=== PATIENT | female | born 1970 | race Caucasian/White ===

== ENCOUNTER → 2018-05-10 10:07 | Outpatient (CLI) | payer OTHER, SELFPAY ==
--- NOTE | 2018-05-10 10:10 | DI.MG.S_ITS ---
BILATERAL DIGITAL SCREENING MAMMOGRAM 3D/2D WITH CAD: 05/10/2018 CLINICAL: Routine screening. Comparison is made to exam dated: 05/08/2016 [facility]. The tissue of both breasts is heterogeneously dense. This may lower the sensitivity of mammography. Current study was also evaluated with a Computer Aided Detection (CAD) system. No significant masses, calcifications, or other findings are seen in either breast. There has been no significant interval change. IMPRESSION: NEGATIVE There is no mammographic evidence of malignancy. A 1 year screening mammogram is recommended. This exam was interpreted at Station ID: [id number]. NOTE: For mammograms, a report in lay terms will be sent to the patient. Approximately 15% of breast malignancies will not be visualized mammographically. In the management of a palpable breast mass, a negative mammogram must not discourage biopsy of a clinically suspicious lesion. Electronically Signed By: Jossue chew/james:05/13/2018 11:40:21 copy to: Jayla Lau letter sent: Normal Exam ACR BI-RADS Category 1: Negative 3341F
== END ==
PROVIDERS: Family Provider Physician Assistant Medical; PCP Physician Assistant Medical; Visit Provider Student in an Organized Health Care Education/Training Program
DX: Z12.31 Encounter for screening mammogram for malignant neoplasm of breast (principal)
CPT/HCPCS: 77063; 77067

== ENCOUNTER → 2018-05-13 09:30 | Outpatient (CLI) | payer OTHER, SELFPAY ==
[2018-05-13 10:25] LABS: Add Manual Diff / Slide Review NO; Basophils Percent Auto 0.7 % (0-2); Eosinophils Percent Auto 3.3 % (2-4); Hemoglobin 13.4 g/dL (12.0-16.0); Lymphocytes Percent Auto 25.1 % (25-40); Mean Corpuscular HGB Conc 33.4 % (30-36); Mean Corpuscular Hemoglobin 29.1 PG (26-34); Mean Corpuscular Volume 87.1 fL (80-100); Monocytes Percent Auto 6.9 % (3-14); Neutrophils Absolute Auto 4000 /uL (3000-5900); Platelet Count 194 X10^3/uL (150-400); Red Cell Distribution Width 13.5 % (11.6-14.8); White Blood Cell Count 6.3 X10^3/uL (4.5-11.0)
[2018-05-13 11:02] LABS: Alanine Aminotransferase 21 IU/L (9-52); Albumin 4.2 g/dL (3.5-5.0); Albumin Globulin Ratio 1.5 (1.0-2.8); Alkaline Phosphatase 39 U/L (38-126); Aspartate Aminotransferase 21 IU/L (14-36); BUN Creatinine Ratio 17.5 (6-22); Bilirubin Total 0.6 mg/dL (0.2-1.3); Blood Urea Nitrogen 14 mg/dL (7-17); Carbon Dioxide 27 mmol/L (22-32); Chloride 102 mmol/L (98-107); Cholesterol 170 mg/dL (140-199); Estimated Glomerular Filt Rate > 60.0 mL/min (>60); Globulin 2.8 g/dL (1.7-4.1); Glucose 96 mg/dL (70-100); HDL Cholesterol 71 mg/dL (40-60); HEMOLYSIS < 15 (0-50); LDL Cholesterol Calculated 83 mg/dL (<100); Potassium 3.7 mmol/L (3.4-5.1); Sodium 139 mmol/L (137-145); Triglycerides 82 mg/dL (35-150)
[2018-05-13 11:30] LABS: Thyroid Stimulating Hormone 3.53 uIU/mL (0.47-4.68)
== END ==
PROVIDERS: Family Provider Physician Assistant Medical; PCP Physician Assistant Medical; Visit Provider Student in an Organized Health Care Education/Training Program
DX: E03.9 Hypothyroidism, unspecified (principal); Z13.220 Encounter for screening for lipoid disorders
CPT/HCPCS: 36415; 80053; 80061; 84443; 85025

== ENCOUNTER → 2019-05-26 08:51 | Outpatient (CLI) | payer OTHER, SELFPAY ==
[2019-05-26 09:55] LABS: Hemoglobin 13.9 g/dL (12.0-16.0); Mean Corpuscular Hemoglobin 29.7 PG (26-34); Mean Corpuscular Volume 87.3 fL (80-100); Platelet Count 188 X10^3/uL (150-400); Red Cell Distribution Width 13.1 % (11.6-14.8); White Blood Cell Count 5.2 X10^3/uL (4.5-11.0)
[2019-05-26 10:00] LABS: Alanine Aminotransferase 15 IU/L (<35); Albumin 4.5 g/dL (3.5-5.0); Albumin Globulin Ratio 1.7 (1.0-2.8); Alkaline Phosphatase 40 U/L (38-126); Aspartate Aminotransferase 26 IU/L (14-36); BUN Creatinine Ratio 17.5 (6-22); Bilirubin Total 0.8 mg/dL (0.2-1.3); Blood Urea Nitrogen 14 mg/dL (7-17); Calcium 9.5 mg/dL (8.4-10.2); Carbon Dioxide 28 mmol/L (22-32); Chloride 104 mmol/L (98-107); Cholesterol 183 mg/dL (140-199); Estimated Glomerular Filt Rate > 60.0 mL/min (>60); Globulin 2.6 g/dL (1.7-4.1); Glucose 104 mg/dL (70-100); HDL Cholesterol 69 mg/dL (40-60); HEMOLYSIS < 15 (0-50); LDL Cholesterol Calculated 101 mg/dL (<100); Potassium 4.5 mmol/L (3.4-5.1); Sodium 140 mmol/L (137-145); Total Protein 7.1 g/dL (6.3-8.2); Triglycerides 67 mg/dL (35-150)
[2019-05-26 11:00] LABS: Thyroid Stimulating Hormone 3.76 uIU/mL (0.47-4.68)
== END ==
PROVIDERS: PCP Nurse Practitioner Family; Visit Provider Nurse Practitioner Family
DX: Z00.00 Encounter for general adult medical examination without abnormal findings (principal); Z13.6 Encounter for screening for cardiovascular disorders; E03.9 Hypothyroidism, unspecified
CPT/HCPCS: 36415; 80053; 80061; 84443; 85027

== ENCOUNTER → 2019-06-15 14:33 | Outpatient (CLI) | payer OTHER, SELFPAY ==
--- NOTE | 2019-06-15 14:35 | DI.MG.S_ITS ---
BILATERAL DIGITAL SCREENING MAMMOGRAM 3D/2D WITH CAD: 06/15/2019 CLINICAL: Routine screening. Comparison is made to exams dated: 05/10/2018 mammogram and 05/08/2016 mammogram - [facility]. The tissue of both breasts is heterogeneously dense. This may lower the sensitivity of mammography. Current study was also evaluated with a Computer Aided Detection (CAD) system. No significant masses, calcifications, or other findings are seen in either breast. There has been no significant interval change. IMPRESSION: NEGATIVE There is no mammographic evidence of malignancy. A 1 year screening mammogram is recommended. This exam was interpreted at Station ID: [id number]. NOTE: For mammograms, a report in lay terms will be sent to the patient. Approximately 15% of breast malignancies will not be visualized mammographically. In the management of a palpable breast mass, a negative mammogram must not discourage biopsy of a clinically suspicious lesion. Electronically Signed By: Emily [email or web address]/james:06/15/2019 15:32:57 copy to: Jayla Lau letter sent: Normal Exam ACR BI-RADS Category 1: Negative 3341F
== END ==
PROVIDERS: PCP Nurse Practitioner Family; Visit Provider Nurse Practitioner Family
DX: Z12.31 Encounter for screening mammogram for malignant neoplasm of breast (principal)
CPT/HCPCS: 77063; 77067

== ENCOUNTER 2019-07-30 12:31 | Day surgery (SDC) | payer OTHER, SELFPAY ==
[2019-07-30 12:54] VITALS: BMI 28.0
[2019-07-30 12:59] VITALS: BP 115/78; PULSE 64; RESP 12; TEMP 36.2; O2SAT 100
--- NOTE | 2019-07-30 13:05 | PM.HP.1 ---
History of Present Illness History of Present Illness Date Patient Seen: 07/30/19 Time Patient Seen: 13:54 Chief complaint: [id number] Narrative: Patient presents for colorectal screening. They have never had any previous examination for such. No personal or family history of colon cancer. On further history denies any recent gastrointestinal symptoms. No nausea, vomiting, abdominal pain, loss of appetite, unexplained weight loss, change in bowel habits, diarrhea, constipation, melena, hematochezia, or bright red blood per rectum. Patient History Medical History Acquired hypothyroidism (Acute 2010) BMI 30.0-30.9,adult (Acute) Chicken pox (Resolved ~1976) History of recurrent ear infection (Resolved) Spell of dizziness (Inactive ~10/2018) Surgical History Anesthesia (Resolved) H/O lateral meniscus repair of right knee (Resolved) Status post appendectomy (~1995) Status post laparoscopic supracervical hysterectomy (07/15/17) Status post tonsillectomy and adenoidectomy (~1976) Family & Social History Family History Father History of heart disease Hypertension Mental health problem Stroke Dementia Mother Multiple sclerosis Hypertension Mental health problem Brother Skin cancer Mental health problem Anxiety and depression Brother Hypertension Hyperlipidemia Mental health problem ADHD Sister Bipolar 1 disorder Personality disorder Hypertension Grandfather History of heart disease Grandmother Mental health problem Schizophrenia Grandfather Cancer Grandmother Stroke Social History: household members spouse Tobacco & Substance use: Smoking Status Never smoker alcohol intake never Substance Use Type does not use Meds Home Medications and Allergies Home Medications Medication Instructions Recorded Confirmed Type calcium carbonate-magnesium oxide 1 tab PO DAILY 05/01/19 07/30/19 History 333 mg-167 mg tablet cholecalciferol (vitamin D3) 25 2,000 unit PO DAILY cap 05/01/19 07/30/19 History mcg (1,000 unit) capsule levothyroxine 50 mcg tablet 50 mcg PO DAILY #90 tab 07/14/19 07/30/19 Rx ondansetron HCl 8 mg PO Q8H PRN 07/30/19 07/30/19 History Allergies Allergy/AdvReac Type Severity Reaction Status Date / Time No Known Drug Allergies Allergy Verified 07/30/19 12:51 Review of Systems Review of Systems Narrative: A 10 point review of systems is negative except as noted in the HPI Exam Vital Signs (past 8 hours): - 07/30/19 12:59 Temperature 97.1 F L Pulse Rate 64 Respiratory Rate 12 Blood Pressure 115/78 Pulse Oximetry 100 Oxygen Delivery Method Room Air Narrative Exam Narrative: General-no acute distress, well nourished HEENT-moist mucous membranes, no scleral icterus Neck-supple, no lymphadenopathy Chest- non labored respirations, clear to auscultation bilaterally Cardiac-regular rate no peripheral edema Abdomen-soft, nontender, non distended Extremities-warm, well perfused Neurological-alert and oriented, no focal deficits Assessment & Plan Assessment and plan (1) Screening for colon cancer: Current visit: Yes Status: Acute Assessment & Plan narrative: The patient requires colorectal screening and colonoscopy is recommended. Technical details were discussed. Risks, benefits, alternatives explained. Risks including but not limited to myocardial infarction, aspiration, bleeding, pain, missed lesion, incomplete examination, need for further radiographic studies, colonic perforation, and need for major abdominal surgery were discussed. All questions were answered to their satisfaction, and they are in agreement with this plan.
[2019-07-30] MEDS: SODIUM CHLORIDE 0.9% 1,000 ML 200 ML IV (13:09)
[2019-07-30] MEDS: fentaNYL 250 MCG/5 ML INJ IV (14:18)
[2019-07-30] MEDS: MIDAZOLAM 5 MG/5 ML VIAL IV (14:18)
--- NOTE | 2019-07-30 14:21 | PM.OP.ENDO ---
Operative Date/Time/Diagnoses Date of procedure: 07/30/19 Time of procedure: 14:21 Pre-op diagnosis: Screening colonoscopy Post-op diagnosis: same Procedure & Clinicians Study performed: Colonoscopy Same procedure as scheduled: Yes Indications: Screening no prior colonoscopy Surgeon: Derrek Irwin Procedure Notes SCOAP/Timeout: Performed Procedure in detail: Patient placed in left lateral decubitus position. Time out was performed. Procedural sedation was administered with Versed and Fentanyl. A rectal exam demonstrated no external hemorrhoids no internal masses. Colonoscopy scope was placed into the rectum and advanced through the colon to the cecum. The ileocecal valve was identified. The scope was then slowly withdrawn examining colon thoroughly in all directions. The colonoscopy was notable for the following 1. No masses or polyps 2. Quality of prep excellent Scope withdrawal time: 7 Sedation minutes: 17 Specimen(s): none sent Complications: none Impression: Normal colonoscopy Post-procedure Recommendations: Colonscopy in 10 years Disposition: same day surgery
[2019-07-30 14:25] VITALS: BP 116/74; PULSE 72; RESP 16; TEMP 36.3; O2SAT 99
[2019-07-30 14:30] VITALS: BP 105/69; PULSE 5; RESP 16; O2SAT 100
[2019-07-30 14:35] VITALS: BP 103/65; PULSE 59; RESP 17; O2SAT 100
[2019-07-30 16:09] VITALS: BP 96/61; PULSE 59; RESP 20; TEMP 36.5; O2SAT 98
== END 2019-07-30 16:12 | disposition home or self-care (01) ==
PROVIDERS: PCP Nurse Practitioner Family; Referring Provider Surgery; Visit Provider Surgery
PROC: 0DJD8ZZ Inspection of Lower Intestinal Tract, Via Natural or Artificial Opening Endoscopic (ICD-10-PCS; CPT 45378; principal; 2019-07-30 13:45)
DX: Z12.11 Encounter for screening for malignant neoplasm of colon (principal)
CPT/HCPCS: 45378; 99152; J2250; J3010

== ENCOUNTER 2020-02-18 11:32 | Emergency (ER) | payer OTHER, SELFPAY ==
[2020-02-18] VITALS (11 sets, daily range): BP systolic 119–138; BP diastolic 74–86; PULSE 55–71; RESP 14–28; TEMP 36.8; O2SAT 99–100; BMI 28.3
[2020-02-18 11:56] LABS: Add Manual Diff / Slide Review NO; Basophils Absolute Auto 0 /uL (0-100); Basophils Percent Auto 0.5 % (0-2); Eosinophils Absolute Auto 100 /uL (0-450); Hematocrit 41.4 % (36-46); Lymphocytes Absolute Auto 1600 /uL (1100-4500); Lymphocytes Percent Auto 24.4 % (25-40); Mean Corpuscular HGB Conc 33.8 % (30-36); Mean Corpuscular Hemoglobin 29.2 PG (26-34); Mean Corpuscular Volume 86.4 fL (80-100); Monocytes Absolute Auto 400 /uL (0-900); Monocytes Percent Auto 5.4 % (3-14); Neutrophils Absolute Auto 4600 /uL (1500-7000); Neutrophils Percent Auto 68.7 % (50-75); Platelet Count 215 X10^3/uL (150-400); Red Blood Cell Count 4.79 X10^6/uL (4.0-5.2); Red Cell Distribution Width 13.2 % (11.6-14.8); White Blood Cell Count 6.7 X10^3/uL (4.5-11.0)
[2020-02-18 12:06] LABS: Prothrombin Time 11.1 SECONDS (10.1-12.7)
--- NOTE | 2020-02-18 12:06 | ED_ITS ---
HPI - Abdominal Pain <MEHREEN Etienne - Last Filed: 02/18/20 15:06> General Chief Complaint: Abdominal Pain Stated Complaint: severe abdominal pain per phys Time Seen by Provider: 02/18/20 11:40 Source: patient Mode of arrival: Ambulatory Limitations: no limitations History of Present Illness HPI narrative: The patient is a 49-year-old female nonsmoker with history of hysterectomy and appendectomy presents with a chief complaint of abdominal pain. She states she had an episode of diffuse abdominal pain last week, then it got better. However last night she started having severe right lower quadrant pain that persisted through the night, causing her to come to the emergency dep artment today. She denies any fevers nausea vomiting or diarrhea. She states her last bowel movement was this morning and normal. She states that the pain was like labor pain, came in when waves. She denies any dysuria urgency or frequency. She took 500 mg of acetaminophen last night and felt no relief. The pain got slightly better after she had a bowel movement this morning. She states it stays in her lower abdomen, does not radiate down her leg ripped her chest. She denies any chest pain or shortness of breath. Related Data Home Medications Medication Instructions Recorded Confirmed calcium carbonate-magnesium oxide 1 tab PO DAILY 05/01/19 07/30/19 333 mg-167 mg tablet cholecalciferol (vitamin D3) 25 2,000 unit PO DAILY cap 05/01/19 07/30/19 mcg (1,000 unit) capsule ondansetron HCl 8 mg PO Q8H PRN 07/30/19 07/30/19 Previous Rx's Medication Instructions Recorded levothyroxine 50 mcg tablet 50 mcg PO DAILY #90 tab 10/12/19 Allergies Allergy/AdvReac Type Severity Reaction Status Date / Time No Known Drug Allergies Allergy Verified 02/18/20 11:40 Review of Systems <MEHREEN Etienne - Last Filed: 02/18/20 15:06> Review of Systems Narrative: GENERAL: Denies chills, fatigue, malaise, fever, sweats. HEENT: Denies sinus pain, ear pain, sore throat, difficulty swallowing, dizziness. RESPIRATORY: Denies dyspnea, cough, wheezing, hemoptysis, sputum. CARDIOVASCULAR: Denies chest pain, palpitations, orthopnea, edema, GASTROINTESTINAL: see HPI : Denies dysuria, frequency, incontinence, hematuria, urinary retention. MUSCULOSKELETAL: denies weakness, joint pain, or bony pain SKIN: Denies rash, skin lesions, or other NEUROLOGIC: Denies weakness, headache, numbness, change in speech, confusion, seizures, incoordination. PSYCHIATRIC: No concerning psychosocial issues. 12 point review of systems is negative except for those stated above Patient History <MEHREEN Etienne - Last Filed: 02/18/20 15:06> Medical History (Updated 02/19/20 @ 13:27 by NADER Lambert) Abnormal CT scan (Acute 02/2020) Acquired hypothyroidism (Acute 2010) BMI 30.0-30.9,adult (Acute) Chicken pox (Resolved ~1976) Diverticulosis (Acute 02/2020) History of recurrent ear infection (Resolved) Liver lesion, left lobe (Acute 02/2020) Spell of dizziness (Inactive ~10/2018) Surgical History Anesthesia (Resolved) H/O lateral meniscus repair of right knee (Resolved) Status post appendectomy (~1995) Status post laparoscopic supracervical hysterectomy (07/15/17) Status post tonsillectomy and adenoidectomy (~1976) Family History Father History of heart disease Hypertension Mental health problem Stroke Dementia Mother Multiple sclerosis Hypertension Mental health problem Brother Skin cancer Mental health problem Anxiety and depression Brother Hypertension Hyperlipidemia Mental health problem ADHD Sister Bipolar 1 disorder Personality disorder Hypertension Grandfather History of heart disease Grandmother Mental health problem Schizophrenia Grandfather Cancer Grandmother Stroke Social History household members: spouse Smoking Status: Never smoker second hand exposure: No alcohol intake: never substance use type: does not use Smoking Status: Never smoker Substance Use Type: does not use Exam <MEHREEN Etienne - Last Filed: 02/18/20 15:06> Narrative Exam Narrative: GENERAL: This is a well-nourished, well-developed patient, in no acute distress HEAD: Atraumatic. Normocephalic. No temporal or scalp tenderness. EYES: Pupils equal round and reactive. Extraocular motions intact. No scleral icterus. No injection or drainage. ENT: Nose without bleeding, purulent drainage or septal hematoma. Wearing a mask. Airway patent. NECK: Trachea midline. No JVD or lymphadenopathy. Supple, nontender, no meningeal signs. CARDIOVASCULAR: Regular rate and rhythm RESPIRATORY: Clear to auscultation. Breath sounds equal bilaterally. No wheezes, rales, or rhonchi. No cough. No increased respiratory effort. No accessory mu scle use. GASTROINTESTINAL: Abdomen soft, diffuse tenderness right lower quadrant, nondistended. No hepato-splenomegaly, or palpable masses. No guarding. Active bowel sounds all 4 quads EXTREMITIES: No clubbing, cyanosis, or edema. No joint tenderness, effusion, or edema noted. BACK: Nontender without deformity or crepitance. No flank tenderness. NEURO: AOx3. SKIN: No rash or erythema. Initial Vital Signs Initial Vital Signs: Vital Signs Temperature 98.2 F 02/18/20 11:35 Pulse Rate 71 02/18/20 11:35 Respiratory Rate 19 02/18/20 11:35 Blood Pressure 138/85 02/18/20 11:35 Pulse Oximetry 100 02/18/20 11:35 <Karen Munoz DO - Last Filed: 02/25/20 07:00> Initial Vital Signs Initial Vital Signs: Vital Signs Temperature 98.2 F 02/18/20 11:35 Pulse Rate 71 02/18/20 11:35 Respiratory Rate 19 02/18/20 11:35 Blood Pressure 138/85 02/18/20 11:35 Pulse Oximetry 100 02/18/20 11:35 Scores <MEHREEN Etienne - Last Filed: 02/18/20 15:06> ABCD2 Citation: Lancet. 2006Jul 06;369(7245):283-92. Validation and refinement of scores to predict very early stroke risk after transient ischaemic attack. Sukhwinder BROWN1, Victorina PM, Kai MN, Jaswant MF, Cindy JS, Flaquito AL, Sushant S. GCS [place] coma scale eye opening: Spontaneous [place] coma scale verbal response: Orientated [place] coma scale motor response: Obey commands [place] coma scale total score: 15 Course <MEHREEN Etienne - Last Filed: 02/18/20 15:06> Orders Ordered: ED Orders 02/18/20 11:40 EKG-12 Lead Stat 02/18/20 11:47 Complete Blood Count AUTO DIFF Stat Comprehensive Metabolic Panel Stat Lipase Stat Partial Thromboplastin Time Stat Prothrombin Time INR Stat 02/18/20 12:04 XR acute abdomen series Stat 02/18/20 12:50 Urine Microscopic Stat 02/18/20 13:18 CT abdomen pelvis w con Stat Vital Signs Vital signs: Vital Signs - 8 hr 02/18/20 11:35 02/18/20 11:54 02/18/20 12:00 Temperature 98.2 F Pulse Rate 71 70 64 Respiratory Rate 19 19 28 H Blood Pressure 138/85 Pulse Oximetry 100 02/18/20 12:49 02/18/20 12:50 02/18/20 13:00 Temperature Pulse Rate 70 61 59 L Respiratory Rate 23 15 Blood Pressure 136/86 124/76 Pulse Oximetry 99 100 02/18/20 13:39 02/18/20 14:00 02/18/20 14:30 Temperature Pulse Rate 65 62 65 Respiratory Rate 23 15 15 Blood Pressure 119/81 Pulse Oximetry 100 100 100 02/18/20 14:35 02/18/20 15:00 Temperature Pulse Rate 55 L 58 L Respiratory Rate 19 14 Blood Pressure 119/81 132/74 Pulse Oximetry 100 100 <Karen Munoz DO - Last Filed: 02/25/20 07:00> Orders Ordered: ED Orders 02/18/20 11:40 EKG-12 Lead Stat 02/18/20 11:47 Complete Blood Count AUTO DIFF Stat Comprehensive Metabolic Panel Stat Lipase Stat Partial Thromboplastin Time Stat Prothrombin Time INR Stat 02/18/20 12:04 XR acute abdomen series Stat 02/18/20 12:50 Urine Microscopic Stat 02/18/20 13:18 CT abdomen pelvis w con Stat Vital Signs Vital signs: Vital Signs - 8 hr 02/18/20 11:35 02/18/20 11:54 02/18/20 12:00 Temperature 98.2 F Pulse Rate 71 70 64 Respiratory Rate 19 19 28 H Blood Pressure 138/85 Pulse Oximetry 100 02/18/20 12:49 02/18/20 12:50 02/18/20 13:00 Temperature Pulse Rate 70 61 59 L Respiratory Rate 23 15 Blood Pressure 136/86 124/76 Pulse Oximetry 99 100 02/18/20 13:39 02/18/20 14:00 02/18/20 14:30 Temperature Pulse Rate 65 62 65 Respiratory Rate 23 15 15 Blood Pressure 119/81 Pulse Oximetry 100 100 100 02/18/20 14:35 02/18/20 15:00 Temperature Pulse Rate 55 L 58 L Respiratory Rate 19 14 Blood Pressure 119/81 132/74 Pulse Oximetry 100 100 MDM - Abdominal Pain <CAITIE Etienne- - Last Filed: 02/18/20 15:06> Differential Diagnosis Differential diagnosis: Likely abdominal pain, constipation, diverticulitis, gastroenteritis and pancreatitis Lab Data Result diagrams: 02/18/20 11:47 02/18/20 11:47 Labs: Lab Results 02/18/20 02/18/20 02/18/20 Range/Units 11:47 11:47 11:47 WBC 6.7 (4.5-11.0) X10^3/uL RBC 4.79 (4.0-5.2) X10^6/uL Hgb 14.0 (12.0-16.0) g/dL Hct 41.4 (36-46) % MCV 86.4 (80-100) fL MCH 29.2 (26-34) PG MCHC 33.8 (30-36) % RDW 13.2 (11.6-14.8) % Plt Count 215 (150-400) X10^3/uL Neut % (Auto) 68.7 (50-75) % Lymph % (Auto) 24.4 L (25-40) % [place] % (Auto) 5.4 (3-14) % Eos % (Auto) 1.0 L (2-4) % Baso % (Auto) 0.5 (0-2) % Neut # (Auto) 4600 (8761-1916) /uL Lymph # (Auto) 1600 (2166-4906) /uL [place] # (Auto) 400 (0-900) /uL Eos # (Auto) 100 (0-450) /uL Baso # (Auto) 0 (0-100) /uL PT 11.1 (10.1-12.7) SECONDS INR 1.0 (0.9-1.3) APTT 32 (26.4-36.2) SECONDS Sodium 138 (137-145) mmol/L Potassium 3.9 (3.4-5.1) mmol/L Chloride 103 (98-107) mmol/L Carbon Dioxide 29 (22-32) mmol/L BUN 13 (7-17) mg/dL Creatinine 0.72 (0.52-1.04) mg/dL Estimated GFR > 60.0 (>60) mL/min BUN/Creatinine Ratio 18.1 (6-22) Glucose 107 H (70-100) mg/dL Calcium 9.5 (8.4-10.2) mg/dL Total Bilirubin 0.7 (0.2-1.3) mg/dL AST 28 (14-36) IU/L ALT 19 (<35) IU/L Alkaline Phosphatase 49 (38-126) U/L Total Protein 8.1 (6.3-8.2) g/dL Albumin 4.9 (3.5-5.0) g/dL Globulin 3.2 (1.7-4.1) g/dL Albumin/Globulin Ratio 1.5 (1.0-2.8) Lipase 476 H (23-300) U/L Urine RBC (0-5/HPF) Urine WBC (0-5/HPF) Urine Bacteria (None) Ur Culture Indicated? 02/18/20 Range/Units 12:50 WBC (4.5-11.0) X10^3/uL RBC (4.0-5.2) X10^6/uL Hgb (12.0-16.0) g/dL Hct (36-46) % MCV (80-100) fL MCH (26-34) PG MCHC (30-36) % RDW (11.6-14.8) % Plt Count (150-400) X10^3/uL Neut % (Auto) (50-75) % Lymph % (Auto) (25-40) % [place] % (Auto) (3-14) % Eos % (Auto) (2-4) % Baso % (Auto) (0-2) % Neut # (Auto) (2255-9495) /uL Lymph # (Auto) (3358-2393) /uL [place] # (Auto) (0-900) /uL Eos # (Auto) (0-450) /uL Baso # (Auto) (0-100) /uL PT (10.1-12.7) SECONDS INR (0.9-1.3) APTT (26.4-36.2) SECONDS Sodium (137-145) mmol/L Potassium (3.4-5.1) mmol/L Chloride (98-107) mmol/L Carbon Dioxide (22-32) mmol/L BUN (7-17) mg/dL Creatinine (0.52-1.04) mg/dL Estimated GFR (>60) mL/min BUN/Creatinine Ratio (6-22) Glucose (70-100) mg/dL Calcium (8.4-10.2) mg/dL Total Bilirubin (0.2-1.3) mg/dL AST (14-36) IU/L ALT (<35) IU/L Alkaline Phosphatase (38-126) U/L Total Protein (6.3-8.2) g/dL Albumin (3.5-5.0) g/dL Globulin (1.7-4.1) g/dL Albumin/Globulin Ratio (1.0-2.8) Lipase (23-300) U/L Urine RBC 1-5/hpf (0-5/HPF) Urine WBC None seen (0-5/HPF) Urine Bacteria None seen (None) Ur Culture Indicated? Cult not indicated Point of care testing: Urine Dip Bedside Urine Glucose Negative Bedside Urine Bilirubin - Negative Bedside Urine Ketone - Negative Urine Specific [place] 1.010 Bedside Urine Occult Blood +/- Bedside Urine pH 7.0 Bedside Urine Protein - Negative Bedside Urine Urobilinogen - Negative Bedside Urine Nitrite - Negative Bedside Urine Leukocytes - Negative Esterase Imaging Data Abdominal x-ray: Radiologist's Impression: [address] [place] [id number] XRay Report Signed Patient: Amarilis Weathers [facility]#: [id number] : 1970Acct:[id number] Age/Sex: 49 / FDate of Service: 02/18/20 Loc: ED Accession Number: [id number] Procedure: XR acute abdomen series Ordering Provider: Annabella QureshiBC PROCEDURE: XR ACUTE ABDOMEN SERIES INDICATIONS: abd pain TECHNIQUE: One view chest and two views of the abdomen were acquired. COMPARISON: None. FINDINGS: Surgical changes and devices: None. Chest: Lungs are clear. Heart size is normal. No pleural effusions. No pneumoperitoneum. Abdomen: Bowel gas pattern is nonobstructive. There is moderate stool. No suspicious calcifications. Visualized solid organ contours appear normal. Bones: No suspicious bony lesions. Mild scoliosis. IMPRESSION: No specific evidence of bowel obstruction seen at this time although if the patient's symptoms do not improve, continued surveillance with abdominal series radiographs could be performed. Moderate stool Dictated by: Kaden Anne M.D. on 02/18/2020 at 12:51 Approved by: Kaden Anne M.D. on 02/18/2020 at 13:04 CT scan - abdomen/pelvis: Radiologist's Impression: [address] [place] [id number] Scan Report Signed Patient: Amarilis Weathers [facility]#: [id number] : 1970Acct:[id number] Age/Sex: 49 / FDate of Service: 02/18/20 Loc: ED Accession Number: [id number] Procedure: CT abdomen pelvis w con Ordering Provider: Annabella Qureshi- PROCEDURE: CT ABDOMEN PELVIS W CON INDICATIONS: rlq pain, abd surg history TECHNIQUE: After the administration of intravenous contrast, 5 mm thick sections acquired from the diaphragm to the symphysis. 5 mm coronal and sagittal reformats were acquired. For radiation dose reduction, the following was used: automated exposure control, adjustment of mA and/or kV according to patient size. COMPARISON: [facility], CR, XR ACUTE ABDOMEN SERIES, 02/18/2020, 12:16. FINDINGS: Image quality: Excellent. ABDOMEN: Lung bases: There is mild dependent atelectasis. Heart size is normal. Solid organs: There is a nonspecific irregular peripheral hypodensity anteriorly in the left hepatic lobe measuring up to 2.4 cm in craniocaudal dimension which is nonspecific. There are a few additional smaller scattered hypodense foci within the liver which are too small to characterize but statistically likely represent cysts. The gallbladder appears within normal limits without calcified gallstones. Biliary system is non-dilated. Pancreas enhances normally. No peripancreatic fat stranding or fluid collections. No pancreatic duct dilatation. The spleen is normal in size. No adrenal nodules. Kidneys demonstrate no hydronephrosis. Peritoneum and bowel: Bowel loops demonstrate normal wall thickness and caliber. There are postsurgical changes along the cecum consistent with prior appendectomy. Colonic diverticulosis is demonstrated without acute diverticulitis. No free fluid or air. Nodes and vessels: No retroperitoneal or mesenteric adenopathy by size criteria. Aorta and inferior vena cava are normal in size. Miscellaneous: No ventral hernias. PELVIS: Genitourinary: Bladder wall thickness is normal. Miscellaneous: No inguinal hernias or adenopathy. Bones: No suspicious bony lesions. No vertebral body compression fractures. IMPRESSION: 1. No definite acute intra-abdominal abnormality. 2. Colonic diverticulosis without acute diverticulitis. 3. Multiple nonspecific hypodense lesions within the liver including an irregular 2.4 cm lesion in the left hepatic lobe. Recommend further evaluation with a liver protocol MRI or CT if clinically indicated. Dictated by: Jossue Marsh M.D. on 02/18/2020 at 13:45 Approved by: Jossue Marsh M.D. on 02/18/2020 at 13:52 ECG Data Attestation: I personally reviewed and interpreted this ECG as follows: Interpretation: Sinus rhythm. Ventricular rate 69. P.r. interval 161. QRS and 97. No ectopy noted. viewed by Dr Munoz MDM Narrative Medical decision making narrative: The patient is a 49-year-old female who presents with a chief complaint of abdominal pain, happened last week and started again today. She appears well, does not have an acute abdomen on exam. However she has multiple surgical history for her abdomen. Lab work came back grossly normal, no leukocytosis. The patient has normal urinalysis, x-ray is concerning for constipation. Given her surgical history, CT was obtained which shows no acute findings though noted to have multiple hypodensities of her liver, thought to be cyst. I discussed at length follow up with primary care provider. We discussed several remedies for constipation as well as return precautions including acute concerns, abdominal pain with fever etcetera. Patient has no questions or concerns upon discharge and states understanding return precautions as well as follow-up care. Patient declined pain medication the emergency department and declined constipation medications to take home. <Karen Munoz, DO - Last Filed: 02/25/20 07:00> Lab Data Labs: Lab Results 02/18/20 02/18/20 02/18/20 Range/Units 11:47 11:47 11:47 WBC 6.7 (4.5-11.0) X10^3/uL RBC 4.79 (4.0-5.2) X10^6/uL Hgb 14.0 (12.0-16.0) g/dL Hct 41.4 (36-46) % MCV 86.4 (80-100) fL MCH 29.2 (26-34) PG MCHC 33.8 (30-36) % RDW 13.2 (11.6-14.8) % Plt Count 215 (150-400) X10^3/uL Neut % (Auto) 68.7 (50-75) % Lymph % (Auto) 24.4 L (25-40) % [place] % (Auto) 5.4 (3-14) % Eos % (Auto) 1.0 L (2-4) % Baso % (Auto) 0.5 (0-2) % Neut # (Auto) 4600 (7158-4279) /uL Lymph # (Auto) 1600 (3946-9612) /uL [place] # (Auto) 400 (0-900) /uL Eos # (Auto) 100 (0-450) /uL Baso # (Auto) 0 (0-100) /uL PT 11.1 (10.1-12.7) SECONDS INR 1.0 (0.9-1.3) APTT 32 (26.4-36.2) SECONDS Sodium 138 (137-145) mmol/L Potassium 3.9 (3.4-5.1) mmol/L Chloride 103 (98-107) mmol/L Carbon Dioxide 29 (22-32) mmol/L BUN 13 (7-17) mg/dL Creatinine 0.72 (0.52-1.04) mg/dL Estimated GFR > 60.0 (>60) mL/min BUN/Creatinine Ratio 18.1 (6-22) Glucose 107 H (70-100) mg/dL Calcium 9.5 (8.4-10.2) mg/dL Total Bilirubin 0.7 (0.2-1.3) mg/dL AST 28 (14-36) IU/L ALT 19 (<35) IU/L Alkaline Phosphatase 49 (38-126) U/L Total Protein 8.1 (6.3-8.2) g/dL Albumin 4.9 (3.5-5.0) g/dL Globulin 3.2 (1.7-4.1) g/dL Albumin/Globulin Ratio 1.5 (1.0-2.8) Lipase 476 H (23-300) U/L Urine RBC (0-5/HPF) Urine WBC (0-5/HPF) Urine Bacteria (None) Ur Culture Indicated? 02/18/20 Range/Units 12:50 WBC (4.5-11.0) X10^3/uL RBC (4.0-5.2) X10^6/uL Hgb (12.0-16.0) g/dL Hct (36-46) % MCV (80-100) fL MCH (26-34) PG MCHC (30-36) % RDW (11.6-14.8) % Plt Count (150-400) X10^3/uL Neut % (Auto) (50-75) % Lymph % (Auto) (25-40) % [place] % (Auto) (3-14) % Eos % (Auto) (2-4) % Baso % (Auto) (0-2) % Neut # (Auto) (6789-0423) /uL Lymph # (Auto) (9081-0489) /uL [place] # (Auto) (0-900) /uL Eos # (Auto) (0-450) /uL Baso # (Auto) (0-100) /uL PT (10.1-12.7) SECONDS INR (0.9-1.3) APTT (26.4-36.2) SECONDS Sodium (137-145) mmol/L Potassium (3.4-5.1) mmol/L Chloride (98-107) mmol/L Carbon Dioxide (22-32) mmol/L BUN (7-17) mg/dL Creatinine (0.52-1.04) mg/dL Estimated GFR (>60) mL/min BUN/Creatinine Ratio (6-22) Glucose (70-100) mg/dL Calcium (8.4-10.2) mg/dL Total Bilirubin (0.2-1.3) mg/dL AST (14-36) IU/L ALT (<35) IU/L Alkaline Phosphatase (38-126) U/L Total Protein (6.3-8.2) g/dL Albumin (3.5-5.0) g/dL Globulin (1.7-4.1) g/dL Albumin/Globulin Ratio (1.0-2.8) Lipase (23-300) U/L Urine RBC 1-5/hpf (0-5/HPF) Urine WBC None seen (0-5/HPF) Urine Bacteria None seen (None) Ur Culture Indicated? Cult not indicated Point of care testing: Urine Dip Bedside Urine Glucose Negative Bedside Urine Bilirubin - Negative Bedside Urine Ketone - Negative Urine Specific [place] 1.010 Bedside Urine Occult Blood +/- Bedside Urine pH 7.0 Bedside Urine Protein - Negative Bedside Urine Urobilinogen - Negative Bedside Urine Nitrite - Negative Bedside Urine Leukocytes - Negative Esterase Discharge Plan Departure Patient Disposition: Home Clinical Impression: Hypodense mass of liver Abdominal pain Qualifiers: Abdominal location: right lower quadrant Qualified Code(s): R10.31 - Right lower quadrant pain Constipation Qualifiers: Constipation type: unspecified constipation type Qualified Code(s): K59.00 - Constipation, unspecified Discharge Date/Time: 02/18/20 15:11 Instructions: DI for Abdominal Pain-Adult, DI for Constipation Activity Restrictions/Additional Instructions: Thank you for trusting us with your care today As discussed, your labwork x-ray and CT scan came back very well. There is suggestion of constipation. As discussed, please use naux-bco-juvgdhi remedies as needed to help treat constipation including senna, MiraLax, docusate stool softener, etcetera. As discussed, we did find evidence of a hypodense area in your liver, which often represents cyst. Please follow-up with primary care provider regarding this. Please come back to the emergency department for any acute concerns such as abdominal pain with fever etcetera or any acute concerns. Please follow-up with primary care provider in the next few days. Prescriptions: No Action levothyroxine 50 mcg tablet 50 mcg PO DAILY Qty: 90 RF: 1 cholecalciferol (vitamin D3) 1,000 unit capsule 2,000 unit PO DAILY RF: 0 calcium carbonate-mag oxide 333-167 mg tablet 1 tab PO DAILY RF: 0 ondansetron HCl 8 mg Tablet 8 mg PO Q8H PRN (Reason: Nausea) RF: 0 Referrals: Nell Blake ARNP [Primary Care Provider] - <Karen Munoz DO - Last Filed: 02/25/20 07:00> Cosign ED Attending Shanelleature Attestation: I was immediately available in the department for consultation. Documentation has been reviewed. I agree with a ssessment and plan.
[2020-02-18 12:08] LABS: Alanine Aminotransferase 19 IU/L (<35); Albumin 4.9 g/dL (3.5-5.0); Albumin Globulin Ratio 1.5 (1.0-2.8); Alkaline Phosphatase 49 U/L (38-126); Aspartate Aminotransferase 28 IU/L (14-36); BUN Creatinine Ratio 18.1 (6-22); Bilirubin Total 0.7 mg/dL (0.2-1.3); Blood Urea Nitrogen 13 mg/dL (7-17); Calcium 9.5 mg/dL (8.4-10.2); Carbon Dioxide 29 mmol/L (22-32); Chloride 103 mmol/L (98-107); Estimated Glomerular Filt Rate > 60.0 mL/min (>60); Globulin 3.2 g/dL (1.7-4.1); Glucose 107 mg/dL (70-100); HEMOLYSIS < 15 (0-50); Lipase 476 U/L (23-300); PTT Partial Thromboplastin Tim 32 SECONDS (26.4-36.2); Potassium 3.9 mmol/L (3.4-5.1); Sodium 138 mmol/L (137-145); Total Protein 8.1 g/dL (6.3-8.2)
[2020-02-18 13:12] LABS: Bacteria Urine None Seen; WBC Urine None Seen (0-5/HPF)
--- NOTE | 2020-02-18 13:18 | DI.CT.S_ITS ---
PROCEDURE: CT ABDOMEN PELVIS W CON INDICATIONS: rlq pain, abd surg history TECHNIQUE: After the administration of intravenous contrast, 5 mm thick sections acquired from the diaphragm to the symphysis. 5 mm coronal and sagittal reformats were acquired. For radiation dose reduction, the following was used: automated exposure control, adjustment of mA and/or kV according to patient size. COMPARISON: [facility], CR, XR ACUTE ABDOMEN SERIES, 02/18/2020, 12:16. FINDINGS: Image quality: Excellent. ABDOMEN: Lung bases: There is mild dependent atelectasis. Heart size is normal. Solid organs: There is a nonspecific irregular peripheral hypodensity anteriorly in the left hepatic lobe measuring up to 2.4 cm in craniocaudal dimension which is nonspecific. There are a few additional smaller scattered hypodense foci within the liver which are too small to characterize but statistically likely represent cysts. The gallbladder appears within normal limits without calcified gallstones. Biliary system is non-dilated. Pancreas enhances normally. No peripancreatic fat stranding or fluid collections. No pancreatic duct dilatation. The spleen is normal in size. No adrenal nodules. Kidneys demonstrate no hydronephrosis. Peritoneum and bowel: Bowel loops demonstrate normal wall thickness and caliber. There are postsurgical changes along the cecum consistent with prior appendectomy. Colonic diverticulosis is demonstrated without acute diverticulitis. No free fluid or air. Nodes and vessels: No retroperitoneal or mesenteric adenopathy by size criteria. Aorta and inferior vena cava are normal in size. Miscellaneous: No ventral hernias. PELVIS: Genitourinary: Bladder wall thickness is normal. Miscellaneous: No inguinal hernias or adenopathy. Bones: No suspicious bony lesions. No vertebral body compression fractures. IMPRESSION: 1. No definite acute intra-abdominal abnormality. 2. Colonic diverticulosis without acute diverticulitis. 3. Multiple nonspecific hypodense lesions within the liver including an irregular 2.4 cm lesion in the left hepatic lobe. Recommend further evaluation with a liver protocol MRI or CT if clinically indicated. Dictated by: Jossue Marsh M.D. on 02/18/2020 at 13:45 Approved by: Jossue Marsh M.D. on 02/18/2020 at 13:52
[2020-02-18 13:26] LABS: RBC Urine 1-5/HPF (0-5/HPF)
[2020-02-18 13:27] LABS: Culture Indicated Urine Cult Not Indicated
== END 2020-02-18 15:11 | disposition home or self-care (01) ==
PROVIDERS: Emergency Medicine; Emergency Provider Nurse Practitioner Family; PCP Nurse Practitioner Family
DX: R10.31 Right lower quadrant pain (principal); K59.00 Constipation, unspecified; R16.0 Hepatomegaly, not elsewhere classified
CPT/HCPCS: 36415; 74022; 74177; 80053; 81003; 81015; 83690; 85025; 85610; 85730; 93005; 99284; Q9967

== ENCOUNTER → 2020-03-14 13:33 | Outpatient (CLI) | payer OTHER, SELFPAY ==
--- NOTE | 2020-03-14 13:34 | DI.MRI.S_ITS ---
PROCEDURE: MR ABDOMEN WO/W CON INDICATIONS: Liver lesion on prior CT. TECHNIQUE: Coronal HASTE, axial 2D FLASH in- and [id number]; axial breath-hold T2 FSE. Dynamic axial VIBE during the administration of contrast; post-contrast coronal VIBE or 2D FLASH with fat saturation from the hepatic dome to the iliac crests. Optional diffusion weighted imaging and ADC may be performed. COMPARISON: [facility], CT, CT ABDOMEN PELVIS W CON, 02/18/2020, 13:28. FINDINGS: Image quality: Excellent. Lung bases: No basal pleural effusions. Heart size is normal. Solid organs: There are 3 small peripheral oval T2-1 hypointense and T2 hyperintense lesions demonstrated in the liver. These include 2 small lesions anteriorly in segment 2 of the left hepatic lobe measuring up to 1.7 x 1.1 cm in transverse dimension and 1.4 x 1.1 cm in transverse dimension. Posteriorly within segment 7 of the right hepatic lobe, there is also a lesion measuring up to 1.3 x 0.9 cm. Following contrast administration, these demonstrate eccentric discontinuous peripheral hypervascular enhancement on the arterial phase with progressive centripetal enhancement internally on the portal venous and delayed phases. The findings are consistent with cavernous hemangiomas. Elsewhere, there are few small scattered cysts in the right hepatic lobe measuring up to approximately 0.4 cm. Gallbladder appears within normal limits without gallstones. Biliary system is non dilated. Pancreas is normal in morphology. Spleen is normal in size and enhancement. No adrenal nodules. Both kidneys demonstrate normal size and enhancement, without hydronephrosis. Nodes and vessels: No retroperitoneal or mesenteric adenopathy by size criteria. Aorta and inferior vena cava are normal in size. Bowel and peritoneum: Visualized bowel loops are normal in caliber. No free fluid. Bones and soft tissues: No ventral hernias. Bone marrow is normal in overall signal. IMPRESSION: 1. Multiple cavernous hemangiomas demonstrated in the liver corresponding to the findings on recent CT. Dictated by: Jossue Marsh M.D. on 03/14/2020 at 17:31 Approved by: Jossue Marsh M.D. on 03/14/2020 at 18:06
== END ==
PROVIDERS: PCP Nurse Practitioner Family; Referring Provider Nurse Practitioner Family; Visit Provider Nurse Practitioner Family
DX: R93.89 Abnormal findings on diagnostic imaging of other specified body structures (principal); D18.09 Hemangioma of other sites; R76.9 Abnormal immunological finding in serum, unspecified
CPT/HCPCS: 74183; A9579

== ENCOUNTER → 2020-04-11 11:33 | Outpatient (CLI) | payer OTHER, SELFPAY ==
[2020-04-11 14:43] LABS: Thyroid Stimulating Hormone 2.05 uIU/mL (0.47-4.68)
== END ==
PROVIDERS: PCP Nurse Practitioner Family; Referring Provider Nurse Practitioner Family; Visit Provider Nurse Practitioner Family
DX: E03.9 Hypothyroidism, unspecified (principal)
CPT/HCPCS: 36415; 84443

== ENCOUNTER → 2020-06-20 12:23 | Outpatient (CLI) | payer OTHER, SELFPAY ==
--- NOTE | 2020-06-20 12:24 | DI.MG.S_ITS ---
BILATERAL DIGITAL SCREENING MAMMOGRAM 3D/2D WITH CAD: 06/20/2020 CLINICAL: Routine screening. Family history of breast cancer. Comparison is made to exams dated: 06/15/2019 mammogram, 05/10/2018 mammogram, and 05/08/2016 mammogram - [facility]. The tissue of both breasts is heterogeneously dense. This may lower the sensitivity of mammography. Current study was also evaluated with a Computer Aided Detection (CAD) system. No significant masses, calcifications, or other findings are seen in either breast. There has been no significant interval change. IMPRESSION: NEGATIVE There is no mammographic evidence of malignancy. A 1 year screening mammogram is recommended. This exam was interpreted at Station ID: [id number]. NOTE: For mammograms, a report in lay terms will be sent to the patient. Approximately 15% of breast malignancies will not be visualized mammographically. In the management of a palpable breast mass, a negative mammogram must not discourage biopsy of a clinically suspicious lesion. Electronically Signed By: Giuseppe craft/james:06/20/2020 16:52:15 copy to: Jayla Lau letter sent: Normal Exam ACR BI-RADS Category 1: Negative 3341F
== END ==
PROVIDERS: PCP Nurse Practitioner Family; Referring Provider Nurse Practitioner Family; Visit Provider Nurse Practitioner Family
DX: Z12.31 Encounter for screening mammogram for malignant neoplasm of breast (principal); Z80.3 Family history of malignant neoplasm of breast
CPT/HCPCS: 77063; 77067

== ENCOUNTER → 2021-07-04 10:04 | Outpatient (CLI) | payer OTHER, SELFPAY ==
[2021-07-04 11:42] LABS: Hematocrit 38.6 % (36-46); Hemoglobin 13.1 g/dL (12.0-16.0); Mean Corpuscular Hemoglobin 29.1 PG (26-34); Mean Corpuscular Volume 85.7 fL (80-100); Platelet Count 209 X10^3/uL (150-400); Red Cell Distribution Width 13.3 % (11.6-14.8); White Blood Cell Count 5.2 X10^3/uL (4.5-11.0)
[2021-07-04 12:06] LABS: Alanine Aminotransferase 26 IU/L (<35); Albumin 4.6 g/dL (3.5-5.0); Albumin Globulin Ratio 1.5 (1.0-2.8); Alkaline Phosphatase 47 U/L (38-126); Aspartate Aminotransferase 30 IU/L (14-36); BUN Creatinine Ratio 18.2 (6-22); Bilirubin Total 0.5 mg/dL (0.2-1.3); Blood Urea Nitrogen 14 mg/dL (7-17); Calcium 9.7 mg/dL (8.4-10.2); Carbon Dioxide 29 mmol/L (22-32); Chloride 104 mmol/L (98-107); Cholesterol 194 mg/dL (140-199); Estimated Glomerular Filt Rate > 60.0 mL/min (>60); Glucose 110 mg/dL (70-100); HDL Cholesterol 81 mg/dL (40-60); HEMOLYSIS < 15 (0-50); LDL Cholesterol Calculated 101 mg/dL (<100); Potassium 4.3 mmol/L (3.4-5.1); Sodium 140 mmol/L (137-145); Total Protein 7.6 g/dL (6.3-8.2); Triglycerides 61 mg/dL (35-150)
[2021-07-04 12:12] LABS: Vitamin D 25 Hydroxy (D3) 54.8 ng/mL (30.0-100.0)
[2021-07-04 12:16] LABS: Free T4, Direct Thyroxine 0.93 ng/dL (0.78-2.19)
[2021-07-04 12:30] LABS: Thyroid Stimulating Hormone 2.18 uIU/mL (0.47-4.68)
[2021-07-05 14:47] LABS: Hemoglobin A1C% w Est Avg Glu 5.6 % (4.0-6.0)
== END ==
PROVIDERS: PCP Nurse Practitioner Family; Referring Provider Nurse Practitioner Family; Visit Provider Nurse Practitioner Family
DX: Z00.00 Encounter for general adult medical examination without abnormal findings (principal); E03.9 Hypothyroidism, unspecified; R73.09 Other abnormal glucose; Z13.6 Encounter for screening for cardiovascular disorders
CPT/HCPCS: 36415; 80053; 80061; 82306; 83036; 84439; 84443; 85027

== ENCOUNTER → 2021-07-07 11:04 | Outpatient (CLI) | payer OTHER, SELFPAY ==
--- NOTE | 2021-07-07 11:05 | DI.MG.S_ITS ---
BILATERAL DIGITAL SCREENING MAMMOGRAM 3D/2D WITH CAD: 07/07/2021 CLINICAL: Routine screening. Family history of breast cancer. Comparison is made to exams dated: 06/20/2020 mammogram, 06/15/2019 mammogram, and 05/10/2018 mammogram - [facility]. The tissue of both breasts is heterogeneously dense. This may lower the sensitivity of mammography. Current study was also evaluated with a Computer Aided Detection (CAD) system. No significant masses, calcifications, or other findings are seen in either breast. There has been no significant interval change. IMPRESSION: NEGATIVE There is no mammographic evidence of malignancy. A 1 year screening mammogram is recommended. This exam was interpreted at Station ID: [id number]. NOTE: For mammograms, a report in lay terms will be sent to the patient. Approximately 15% of breast malignancies will not be visualized mammographically. In the management of a palpable breast mass, a negative mammogram must not discourage biopsy of a clinically suspicious lesion. Electronically Signed By: Jaylan Russell acr/penrad:07/07/2021 11:27:52 copy to: Jayla Lau letter sent: Normal Exam ACR BI-RADS Category 1: Negative 3341F
== END ==
PROVIDERS: PCP Nurse Practitioner Family; Referring Provider Nurse Practitioner Family; Visit Provider Nurse Practitioner Family
DX: Z12.31 Encounter for screening mammogram for malignant neoplasm of breast (principal); Z80.3 Family history of malignant neoplasm of breast
CPT/HCPCS: 77063; 77067

== ENCOUNTER → 2022-02-05 15:11 | Outpatient (CLI) | payer OTHER, SELFPAY ==
[2022-02-05 18:27] LABS: Hep C Virus Ab w/Reflex Quant NEGATIVE s/c (NEGATIVE)
== END ==
PROVIDERS: PCP Nurse Practitioner; Referring Provider Nurse Practitioner; Visit Provider Nurse Practitioner
DX: Z11.59 Encounter for screening for other viral diseases (principal)
CPT/HCPCS: 36415; 86803

== ENCOUNTER → 2022-02-20 10:51 | Outpatient (CLI) | payer OTHER, SELFPAY ==
[2022-02-21 15:07] LABS: Fecal Immunochemical Test Negative (Negative)
== END ==
PROVIDERS: PCP Nurse Practitioner; Referring Provider Nurse Practitioner; Visit Provider Nurse Practitioner
DX: Z12.11 Encounter for screening for malignant neoplasm of colon (principal)
CPT/HCPCS: 82274

== ENCOUNTER → 2022-05-16 12:12 | Outpatient (CLI) | payer OTHER, SELFPAY ==
--- NOTE | 2022-05-16 12:17 | DI.RAD.S_ITS ---
PROCEDURE: XR HIP W PEL IF DONE ADALBERTO MIN 4V INDICATIONS: PAIN IN HIPS TECHNIQUE: AP pelvis with lateral view(s) of the bilateral hip(s). COMPARISON: None. FINDINGS: Bones: No fractures or dislocations. Pelvic ring appears intact. No suspicious bony lesions. Soft tissues: The visualized bowel gas pattern is normal. No suspicious soft tissue calcifications. IMPRESSION: Normal pelvis and bilateral hips Dictated by: Jaylan Russell M.D. on 05/16/2022 at 13:03 Approved by: Jaylan Russell M.D. on 05/16/2022 at 13:04
== END ==
PROVIDERS: PCP Nurse Practitioner; Referring Provider Registered Nurse Diabetes Educator; Visit Provider Registered Nurse Diabetes Educator
DX: M25.551 Pain in right hip (principal); M25.552 Pain in left hip
CPT/HCPCS: 73522

== ENCOUNTER → 2022-07-20 10:40 | Outpatient (CLI) | payer OTHER, SELFPAY ==
--- NOTE | 2022-07-20 10:41 | DI.MG.S_ITS ---
BILATERAL DIGITAL SCREENING MAMMOGRAM 3D/2D WITH CAD: 07/20/2022 CLINICAL: Routine screening. Family history of breast cancer. Comparison is made to exams dated: 07/07/2021 mammogram, 06/20/2020 mammogram, and 06/15/2019 mammogram - [facility]. Both breasts are heterogeneously dense, which may obscure small masses (category c / 51-75% glandular tissue). Current study was also evaluated with a Computer Aided Detection (CAD) system. No significant masses, calcifications, or other findings are seen in either breast. There has been no significant interval change. IMPRESSION: NEGATIVE There is no mammographic evidence of malignancy. A 1 year screening mammogram is recommended. Based on the Tyrer Cuzick model (a risk assessment model) the patient's lifetime risk is 15.0% and her 10 year risk is 4.2%. According to the ACR, ACS, and NCCN guidelines, an annual breast MRI exam along with mammogram is recommended if the patient's lifetime risk is 20% or greater. This exam was interpreted at Station ID: [id number]. NOTE: For mammograms, a report in lay terms will be sent to the patient. Approximately 15% of breast malignancies will not be visualized mammographically. In the management of a palpable breast mass, a negative mammogram must not discourage biopsy of a clinically suspicious lesion. Electronically Signed By: Timo Barnes M.D., jr/james:07/20/2022 14:02:18 copy to: Jayla Lau letter sent: Normal Exam ACR BI-RADS Category 1: Negative 3341F
== END ==
PROVIDERS: PCP Nurse Practitioner; Referring Provider Nurse Practitioner; Visit Provider Nurse Practitioner
DX: Z12.31 Encounter for screening mammogram for malignant neoplasm of breast (principal); Z80.3 Family history of malignant neoplasm of breast
CPT/HCPCS: 77063; 77067

== ENCOUNTER → 2022-07-22 10:54 | Outpatient (CLI) | payer OTHER, SELFPAY ==
--- NOTE | 2022-07-22 10:55 | DI.MRI.S_ITS ---
PROCEDURE: MR PELVIS WO CON INDICATIONS: bilateral hip pain refractory to PT, worsened with PT TECHNIQUE: Noncontrast coronal and sagittal T1 spin echo and STIR, and axial T1 spin echo and T2 fast spin echo with fat saturation through the bony pelvis. COMPARISON: [facility], CR, XR HIP W PEL IF DONE ADALBERTO 3TO4V, 05/16/2022, 12:20. FINDINGS: Image quality: Excellent. Bones: Bone marrow of the pelvic ring, sacrum, and proximal femurs show normal signal throughout. No intraosseous lesions or fractures identified. Mild degenerative changes at the pubic symphysis and sacroiliac joints. Disc desiccation and facet hypertrophy are seen in the included portions of the lumbar spine. Mild degenerative changes are seen in the hips bilaterally; however, this exam is not tailored for evaluation of the hips, and the acetabular duke and articular cartilages are not completely evaluated. The ischiofemoral distance is are narrowed bilaterally, measuring approximately 9 mm on each side, without significant fatty infiltration of the quadratus femoris muscles. Tendons: The gluteus medius and minimus tendons demonstrate tendinosis. The proximal iliotibial bands also appear intact. The iliopsoas tendons appear intact, without adjacent bursal fluid collections or evidence for impingement syndrome. The origins of the hamstring tendons are intact. The straight and reflected heads of the rectus femoris muscle origins appear intact, as well as the conjoint tendons. Soft tissues: Visualized muscles demonstrate normal bulk and internal signal. No joint effusions. No free pelvic fluid. Bladder wall thickness is normal. Status post hysterectomy. IMPRESSION: 1. Mild bilateral hip osteoarthrosis. Mild degenerative changes are also seen in the pubic symphysis, sacroiliac joints, and lower lumbar spine. 2. Tendinosis of the distal gluteus medius and minimus tendons near their insertions onto the greater trochanters bilaterally. Low-grade partial tendon tearing is not excluded on these large [id number] images. 3. Narrowing of the bilateral ischiofemoral distances without edema or fatty infiltration of the quadratus femoris muscles. Findings are nonspecific but may predispose to ischial femoral impingement. Approved by: Giuseppe Segovia M.D. on 07/23/2022 at 10:57
== END ==
PROVIDERS: PCP Nurse Practitioner; Referring Provider Nurse Practitioner; Visit Provider Nurse Practitioner
DX: M16.0 Bilateral primary osteoarthritis of hip (principal); M25.551 Pain in right hip; M25.552 Pain in left hip; M70.60 Trochanteric bursitis, unspecified hip; M79.651 Pain in right thigh; M79.652 Pain in left thigh
CPT/HCPCS: 72195

== ENCOUNTER → 2023-07-08 09:00 | Outpatient (CLI) | payer OTHER, SELFPAY ==
[2023-07-08 10:18] LABS: Add Manual Diff / Slide Review NO; Basophils Absolute Auto 0 /uL (0-100); Basophils Percent Auto 0.9 % (0-2); Eosinophils Absolute Auto 100 /uL (0-450); Eosinophils Percent Auto 2.4 % (2-4); Hematocrit 39.3 % (36-46); Hemoglobin 13.4 g/dL (12.0-16.0); Lymphocytes Absolute Auto 1400 /uL (1100-4500); Lymphocytes Percent Auto 30.6 % (25-40); Mean Corpuscular Hemoglobin 29.8 PG (26-34); Mean Corpuscular Volume 87.5 fL (80-100); Monocytes Absolute Auto 400 /uL (0-900); Monocytes Percent Auto 7.8 % (3-14); Neutrophils Absolute Auto 2700 /uL (1500-7000); Neutrophils Percent Auto 58.3 % (50-75); Platelet Count 189 X10^3/uL (150-400); White Blood Cell Count 4.6 X10^3/uL (4.5-11.0)
[2023-07-08 10:45] LABS: Alanine Aminotransferase 20 IU/L (<35); Albumin 4.2 g/dL (3.5-5.0); Albumin Globulin Ratio 1.6 (1.0-2.8); Alkaline Phosphatase 54 U/L (38-126); Aspartate Aminotransferase 26 IU/L (14-36); BUN Creatinine Ratio 14.1 (6-22); Bilirubin Total 0.8 mg/dL (0.2-1.3); Blood Urea Nitrogen 11 mg/dL (7-17); Calcium 9.7 mg/dL (8.4-10.2); Carbon Dioxide 27 mmol/L (22-32); Chloride 104 mmol/L (98-107); Cholesterol 181 mg/dL (140-199); Estimated Glomerular Filt Rate > 60 mL/min (>60); Globulin 2.7 g/dL (1.7-4.1); Glucose 101 mg/dL (70-100); HDL Cholesterol 73 mg/dL (40-60); HEMOLYSIS < 15 (0-50); LDL Cholesterol Calculated 92 mg/dL (<100); Potassium 4.5 mmol/L (3.4-5.1); Sodium 137 mmol/L (137-145); Total Protein 6.9 g/dL (6.3-8.2); Triglycerides 78 mg/dL (35-150)
[2023-07-08 10:48] LABS: Creatinine Urine Random 156.4 mg/dL
[2023-07-08 10:57] LABS: Microalbumin Urine Random < 0.6 mg/dL (0-1.6)
[2023-07-08 11:05] LABS: Free T3, Triiodothyronine Free 3.23 pg/mL (2.77-5.27); Free T4, Direct Thyroxine 0.96 ng/dL (0.78-2.19)
[2023-07-08 11:18] LABS: Thyroid Stimulating Hormone 1.74 uIU/mL (0.47-4.68)
[2023-07-08 16:52] LABS: HIV 1 & 2 Ab/Ag 4th Gen Combo NEGATIVE (NEGATIVE)
[2023-07-09 08:48] LABS: Thyroid Peroxidase Antibodies 117 IU/mL (0-34)
== END ==
PROVIDERS: PCP Nurse Practitioner; Referring Provider Nurse Practitioner; Visit Provider Nurse Practitioner
DX: Z00.00 Encounter for general adult medical examination without abnormal findings (principal); Z11.4 Encounter for screening for human immunodeficiency virus [HIV]; E06.3 Autoimmune thyroiditis; E03.9 Hypothyroidism, unspecified
CPT/HCPCS: 36415; 80053; 80061; 82043; 82570; 84439; 84443; 84481; 85025; 86376; 87389

== ENCOUNTER → 2023-07-12 15:39 | Outpatient (CLI) | payer OTHER, SELFPAY ==
--- NOTE | 2023-07-12 15:40 | DI.MG.S_ITS ---
BILATERAL DIGITAL SCREENING MAMMOGRAM 3D/2D WITH CAD: 07/12/2023 CLINICAL: Routine screening. Family history of breast cancer. Comparison is made to exams dated: 07/20/2022 mammogram, 07/07/2021 mammogram, and 06/20/2020 mammogram - [facility]. Both breasts are heterogeneously dense, which may obscure small masses (category c / 51-75% glandular tissue). Current study was also evaluated with a Computer Aided Detection (CAD) system. No significant masses, calcifications, or other findings are seen in either breast. There has been no significant interval change. IMPRESSION: NEGATIVE There is no mammographic evidence of malignancy. A 1 year screening mammogram is recommended. Based on the Tyrer Cuzick model (a risk assessment model) the patient's lifetime risk is 15.1% and her 10 year risk is 4.4%. According to the ACR, ACS, and NCCN guidelines, an annual breast MRI exam along with mammogram is recommended if the patient's lifetime risk is 20% or greater. This exam was interpreted at Station ID: [id number]. NOTE: For mammograms, a report in lay terms will be sent to the patient. Approximately 15% of breast malignancies will not be visualized mammographically. In the management of a palpable breast mass, a negative mammogram must not discourage biopsy of a clinically suspicious lesion. Electronically Signed By: Ok baldwin/james:07/15/2023 10:00:39 copy to: Jayla Lau letter sent: Normal Exam ACR BI-RADS Category 1: Negative 3341F
== END ==
PROVIDERS: PCP Nurse Practitioner; Referring Provider Nurse Practitioner; Visit Provider Nurse Practitioner
DX: Z12.31 Encounter for screening mammogram for malignant neoplasm of breast (principal); Z80.3 Family history of malignant neoplasm of breast; R92.333 Mammographic heterogeneous density, bilateral breasts
CPT/HCPCS: 77063; 77067

== ENCOUNTER → 2023-09-10 13:11 | Outpatient (CLI) | payer OTHER, SELFPAY ==
--- NOTE | 2023-09-10 13:11 | DI.US.S_ITS ---
PROCEDURE: US THYROID INDICATIONS: JASIEL'S TECHNIQUE: Real-time scanning was performed of the thyroid gland, with image documentation. COMPARISON: None. FINDINGS: Thyroid: Right lobe measures 4.7 x 1.9 x 2.2 cm. Left lobe measures 4.1 x 1.0 x 1.2 cm. Isthmus is 0.5 cm thick. Echotexture is diffusely heterogeneous in appearance without focal measurable nodule. IMPRESSION: A diffusely heterogeneous thyroid gland without focal measurable nodule can be seen in Jasiel's thyroiditis. No lesion requiring ultrasound-guided FNA ACR TI-RADS definitions and recommendations: TI-RADS 1 (benign): 0 points. FNA not needed. TI-RADS 2 (not suspicious): 2 points. FNA not needed. TI-RADS 3 (mildly suspicious): 3 points. * FNA if 2.5 cm or larger, follow up if 1.5 cm or larger (at 1, 3, and 5 years). TI-RADS 4 (moderately suspicious): 4-6 points. * FNA if 1.5 cm or larger, follow up if 1 cm or larger (at 1, 2, 3, and 5 years). TI-RADS 5 (highly suspicious): 7 points or more. * FNA if 1 cm or larger, follow up if 0.5 cm or larger (every year for 5 years). Dictated by: Gopi Serrato M.D. on 09/10/2023 at 16:01 Approved by: Gopi Serrato M.D. on 09/10/2023 at 16:06
== END ==
PROVIDERS: PCP Nurse Practitioner; Referring Provider Nurse Practitioner; Visit Provider Nurse Practitioner
DX: E06.3 Autoimmune thyroiditis (principal); E03.9 Hypothyroidism, unspecified
CPT/HCPCS: 76536

== ENCOUNTER → 2024-02-18 16:57 | Outpatient (CLI) | payer OTHER, SELFPAY ==
[2024-02-22 15:27] LABS: Urine N gonorrhoeae NOT DETECTED
[2024-02-22 15:32] LABS: Urine Chlamydia NOT DETECTED
== END ==
PROVIDERS: Family Provider Nurse Practitioner; PCP Nurse Practitioner; Visit Provider Nurse Practitioner Family
DX: N94.89 Other specified conditions associated with female genital organs and menstrual cycle (principal); R30.0 Dysuria; N89.8 Other specified noninflammatory disorders of vagina
CPT/HCPCS: 87086; 87210; 87491; 87591

== ENCOUNTER 2024-03-20 11:30 | Outpatient (RCR) | payer OTHER, SELFPAY ==
--- NOTE | 2023-12-16 16:31 | PT.OIE ---
Current Diagnoses Pain in unspecified hip (12/16/23) Muscle weakness (generalized) (12/16/23) Other specified disorders of muscle (12/16/23) Stress incontinence (female) (male) (12/16/23) Past Medical History (Last Reviewed 08/20/23 @ 13:25 by NADER Le) Abnormal CT scan (02/2020) Acquired hypothyroidism (2010) Chicken pox (~1976) Diverticulosis (02/2020) Ajsiel's disease History of recurrent ear infection Liver lesion, left lobe (02/2020) Spell of dizziness (~10/2018) Past Surgical History (Last Reviewed 08/20/23 @ 13:25 by NADER Le) Anesthesia H/O lateral meniscus repair of right knee Status post appendectomy (~1995) Status post laparoscopic supracervical hysterectomy (07/15/17) Status post tonsillectomy and adenoidectomy (~1976) Visit Care Team Role Provider Type NADER Le Attending Provider 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 Address: [address] [place] [address], [facility] Email: [email or web address] Physical Therapy Initial Evaluation PT-OP-A Visit Information Start: 12/06/23 19:51 Freq: Status: Active Protocol: Document 12/16/23 11:26 LRN (Rec: 12/16/23 12:40 LRN [id number]) Out-Patient Physical Therapy Visit Information Visit Information Visit Type Initial Evaluation Visit Start Time 11:26 Visit Stop Time 12:17 Visit Number 1 Evaluation Information Evaluation Date 12/16/23 Precautions Precautions Hypothyroid controlled by meds , interminttent dizziness like vertigo-2018. Partial hysterectomy 2017, burst appendix 1996. PT-OP-B Current Condition Start: 12/06/23 19:51 Freq: Status: Active Protocol: Document 12/16/23 11:26 LRN (Rec: 12/16/23 12:40 LRN [id number]) Current Condition History of Current Condition Onset Date May 2023 Current Complaints Mild rectocele and intermittent urinary leakage with cough/sneeze History of Current Condition Pt reports during her pelvic exam it was thought that her bowels were poking through the PF and wanted her to have PT so that it wouldn't get worse. She has started estradiol for the PF. Sometimes with sneeze or cough she has urinary leakage. Currently, she is being followed for bilateral gluteal tendonopathy and being treated at L4-L5 by accupuncturist and chiropractor (for neurological integration). Dr. 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 Saw was given insole support for shoes by her chiropractor. She reports having urinary leakage sometimes with a cough or sneeze. 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 Too much sitting or walking flares her pain. Prior Treatments and Tests 2 pregnancies of over 40#, vaginal births with minmal tearing w/o stitches. Treatment Goals Patient/Caregiver Goals Pt goals: Reduce rectocele and learn what to do ( exercises) to prevent rectocele from worsening, but doesn't want to make her other medical conditions worse. Ageeable to HEP. 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 Surgical history of partial hysterectomy 2017, and burst appendix 1995. PT-OP-C Subjective Start: 12/06/23 19:51 Freq: Status: Active Protocol: Document 12/16/23 11:26 LRN (Rec: 12/16/23 12:40 N [id number]) Patient Questionnaires Pelvic Pain and Urgency/Frequency Patient Symptom Scale Pelvic Pain Score 4 OP-PT Pain Assessment Pain Assessment Grid Paper Pain Assessment Grid Completed Yes Location Lateral hips/gluts Intensity 4 Scale Used Numeric (0 - 10) Description- Other Pain ranges 1-4 Frequency Intermittent PT-OP-I Pelvic Floor Start: 12/06/23 19:51 Freq: Status: Active Protocol: Document 12/16/23 11:26 LRN (Rec: 12/16/23 12:40 LRN [id number]) Pelvic Floor Assessment Urine Leakage Cause Cough,Sneeze Nocturia 1 Bowel Bowel Movement Frequency 1/day Kelly Stool Chart Type 1-7 4 Pelvic Clock Pelvic Clock Other 6 O'Clock bulging of tissue. Prolapse Cystocele Grade 2 Rectocele Grade 3 Prolapse Comments Rectocele is at vaginal opening. Perineal Descent Resting Absent Bearing Present Contraction Ability Manual Muscle Testing Left 2 Manual Muscle Testing Right 2 Manual Muscle Testing Anterior 3 Manual Muscle Testing Posterior 2 Muscle Endurance (Seconds) 3 Number of Quick Contractions In 10 8 Seconds PT-OP-J Posture/Palpation/Skin Start: 12/06/23 19:51 Freq: Status: Active Protocol: Document 12/16/23 11:26 LRN (Rec: 12/16/23 12:40 LRN [id number]) Posture Evaluation Position Standing Head/C-Spine Posture Forward Head T-Spine Posture Flattened Shoulder Posture (L) Elevated Pelvis Posture Anteriorly Tilted,(L) PSIS Posterior Comments Posture Comments Valgus of big toes, straightened upper T/S, mild C-curve of T11-L4 with T12-L1 apex on L. PT-OP-K Range of Motion Start: 12/06/23 19:51 Freq: Status: Active Protocol: Document 12/16/23 11:26 LRN (Rec: 12/16/23 12:40 LRN [id number]) Lumbar Spine Range of Motion Lumbar Spine Active Degrees Testing Position Standing Flexion 85 Extension 20 Rotation Left 25 Rotation Right 15 Lateral Flexion Left 27 Lateral Flexion Right 15 PT-OP-M Strength Start: 12/06/23 19:51 Freq: Status: Active Protocol: Document 12/16/23 11:26 LRN (Rec: 12/16/23 12:40 LRN [id number]) Trunk Strength Trunk Manual Muscle Testing Core Stabilization R hip flex MMT 4/5, otherwise pt not able to maintain a stable core with movements of the LE's. Hip Strength Hip Manual Muscle Testing Right Extension (S1) 3+ Fair+ Abduction 3+ Fair+ Adduction 3 Fair Left Extension (S1) 3 Fair Abduction 4 Good Internal Rotation 3+ Fair+ Comments Strength is 5/5 except as indicated above. PT-OP-Q Treatments Start: 12/06/23 19:51 Freq: Status: Active Protocol: Document 12/16/23 11:26 LRN (Rec: 12/16/23 12:40 LRN [id number]) Self-Care/Home Management Treatment Education Other Education Discussed results of evaluation, goals, treatment, and plan of care (POC) with pt , discussed attendance/cx/dns policy; pt agreeable to evaluation, goals, treatment, attendance/cx/dns policy and POC. Discussed and educated pt in specifics for completion of in use of Bladder Diary and I/S in tracking for 1 week. Activities Self-Care/Home Management Activities Issued & reviewed HEP: Kegel ex's and discussed exercise of Quick Flicks, Long Holds and Aggravators. PT-OP-T Assessment and Plan Start: 12/06/23 19:51 Freq: Status: Active Protocol: Document 12/16/23 11:26 LRN (Rec: 12/16/23 12:40 LRN [id number]) Physical Therapy Assessment Rehab Potential Rehabilitation Potential Good Evaluation Complexity Number of Personal Factors/Comorbidities 1-2 Number of Body Systems Impaired 3 Clinical Presentation at Evaluation Evolving Impairments Impairments Activity Tolerance,Pain, Posture,ROM,Soft Tissue Mobility,Strength Other Impairments Rectocele & stress urinary incontinence. Goals Three Impairment Poor core pressure management. Short Term Goal (STG) Pt educated in core pressure management and able to identify management with ADLs. STG Duration 2 wks-12/31/23 Wellness Ambassador Goal (LTG) Pt able to demonstrate good core pressure management with transfers. LTG Duration 15 wks-03/27/24 Two Impairment Decreased PF endurance Short Term Goal (STG) Pt will improve PF endurance to 5 sec hold prior to fatigue . STG Duration 8 wks-02/14/24 Wellness Ambassador Goal (LTG) Pt will be able to improve PF endurance to 10 second hold prior to fatigue. LTG Duration 15 wks-03/27/24 One Impairment Lacks appropriate self care HEP Short Term Goal (STG) Pt will be educated in posterior PF strengthening and endurance ex's to decrease rectocele bulge at vaginal entry. STG Duration 2 wks-12/31/23 [facility] Goal (LTG) Pt will be independent in a HEP of PF/hip ROM & strengthening exercises for stabilization of pelvis w/o increasing ny hip tendonopathy pain. 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 The pt will benefit from skilled physical therapy for PF strengthening, train Kegel without use of substitute muscles and education in a self care HEP program of PF strengthening, hip/core strengthening, body mechanics/ ADL and core pressure management training. Pt would probaby benefit from low back core stabilization rehabilitation to address her ny low back/hip discomfort that is exacerbated by her job and is limiting her activity tolerance for her job and functional/recreational activities. Physical Therapy Plan Frequency and Duration Frequency of Treatment 1x/Week Duration of treatment (weeks) 15 Plan of Care Start Date 12/16/23 Plan of Care End Date 03/27/24 Therapeutic Interventions Therapeutic Interventions Home Exercise Program,Joint Mobilizations,Manual Therapy, Neuromuscular Re-education, Self-Care/Home Management,Soft Tissue Mobilization, Therapeutic Activities, Therapeutic Exercises Modalities Biofeedback,Electric Stimulation Other Referrals/Consults Referrals/Consults Recommended Pt may need OBGYN assessment/ treatment of the soft tissue at her vaginal entrance at 6 of PF clock if not affected by PF therapy. Next Visit Focus/Plan Next Note Type Treatment Note Next Visit Plan Next: Assess hip mobility. Review bladder diary. Pt education in bladder retraining with urge deference technique. Proper Kegel without use of substitute muscles. Education: Core pressure management with reduction of intra-abdominal pressure, proper deep breathing, and proper breathing with transfers and body mechanics. Ther Ex: PF/core/hip strengthening, improve hip IR and trunk extension mobility. POC: Pt education, Manual therapy. ?Biofeedback with vaginal sensor. Therapeutic Exercises, Therapeutic Activities, Neuromuscular Reeducation.
--- NOTE | 2023-12-16 16:32 | PT.OPPOC ---
Physical, Occupational & Speech Therapy At [facility] Current Diagnoses Pain in unspecified hip (12/16/23) Muscle weakness (generalized) (12/16/23) Other specified disorders of muscle (12/16/23) Stress incontinence (female) (male) (12/16/23) Visit Care Team Role Provider Type NADER Le Attending Provider Advanced Marketing Operations Analyst Family Provider Primary Care Provider Referring Provider Specialty: Family Practice Address: [address] [place] [address], [id number] Email: [email or web address] Plan Of Care PT-OP-T Assessment and Plan Start: 12/06/23 19:51 Freq: Status: Active Protocol: Document 12/16/23 11:26 LRN (Rec: 12/16/23 12:40 LRN [id number]) Physical Therapy Assessment Rehab Potential Rehabilitation Potential Good Evaluation Complexity Number of Personal Factors/Comorbidities 1-2 Number of Body Systems Impaired 3 Clinical Presentation at Evaluation Evolving Impairments Impairments Activity Tolerance,Pain, Posture,ROM,Soft Tissue Mobility,Strength Other Impairments Rectocele & stress urinary incontinence. Goals Three Impairment Poor core pressure management. Short Term Goal (STG) Pt educated in core pressure management and able to identify management with ADLs. STG Duration 2 wks-12/31/23 Configuration Manager Goal (LTG) Pt able to demonstrate good core pressure management with transfers. LTG Duration 15 wks-03/27/24 Two Impairment Decreased PF endurance Short Term Goal (STG) Pt will improve PF endurance to 5 sec hold prior to fatigue . STG Duration 8 wks-02/14/24 Care Home Goal (LTG) Pt will be able to improve PF endurance to 10 second hold prior to fatigue. LTG Duration 15 wks-03/27/24 One Impairment Lacks appropriate self care HEP Short Term Goal (STG) Pt will be educated in posterior PF strengthening and endurance ex's to decrease rectocele bulge at vaginal entry. STG Duration 2 wks-12/31/23 Configuration Manager Goal (LTG) Pt will be independent in a HEP of PF/hip ROM & strengthening exercises for stabilization of pelvis w/o increasing ny hip tendonopathy pain. LTG Duration 15 wks-03/27/24 Assessment Summary Assessment Pt is a 53 yo female who presents with soft tissue at 6 O'Clock of PF clock at vaginal opening (mass vs rectocele?) with weakness of long hold endurance ms and fairly good strength of superficial ms except at 6 O' Clock and interminttent stress urinary incontinence with a cough or sneeze, current diagnosed comorbidity of ny gluteal tendinosus and receiving accupuncture & nursing care partner. The pt will benefit from skilled physical therapy for PF strengthening, train Kegel without use of substitute muscles and education in a self care HEP program of PF strengthening, hip/core strengthening, body mechanics/ ADL and core pressure management training. Pt would probaby benefit from low back core stabilization rehabilitation to address her ny low back/hip discomfort that is exacerbated by her job and is limiting her activity tolerance for her job and functional/recreational activities. Physical Therapy Plan Frequency and Duration Frequency of Treatment 1x/Week Duration of treatment (weeks) 15 Plan of Care Start Date 12/16/23 Plan of Care End Date 03/27/24 Therapeutic Interventions Therapeutic Interventions Home Exercise Program,Joint Mobilizations,Manual Therapy, Neuromuscular Re-education, Self-Care/Home Management,Soft Tissue Mobilization, Therapeutic Activities, Therapeutic Exercises Modalities Biofeedback,Electric Stimulation Other Referrals/Consults Referrals/Consults Recommended Pt may need OBGYN assessment/ treatment of the soft tissue at her vaginal entrance at 6 of PF clock if not affected by PF therapy. Next Visit Focus/Plan Next Note Type Treatment Note Next Visit Plan Next: Assess hip mobility. Review bladder diary. Pt education in bladder retraining with urge deference technique. Proper Kegel without use of substitute muscles. Education: Core pressure management with reduction of intra-abdominal pressure, proper deep breathing, and proper breathing with transfers and body mechanics. Ther Ex: PF/core/hip strengthening, improve hip IR and trunk extension mobility. POC: Pt education, Manual therapy. ?Biofeedback with vaginal sensor. Therapeutic Exercises, Therapeutic Activities, Neuromuscular Reeducation. Plan of Care Dates Plan of Care Start Date 12/16/23 Plan of Care End Date 03/27/24 Electronically Signed by: Emily Elizabeth, PT 12/17/23 3946 If you are in agreement with this Plan of Care, please return a signed and dated copy. I have reviewed this Plan of Care and certify that the skilled therapy services above are required to meet the patient?s needs. Physician Signature Date Printed Name and Credentials Clinical Instructor Signature Printed Name and Credentials
--- NOTE | 2023-12-23 13:28 | PT.OTN ---
Current Diagnoses Pain in unspecified hip (12/23/23) Muscle weakness (generalized) (12/23/23) Other specified disorders of muscle (12/23/23) Stress incontinence (female) (male) (12/23/23) Physical Therapy Treatment Note PT-OP-A Visit Information Start: 12/06/23 19:51 Freq: Status: Active Protocol: Document 12/23/23 11:31 LRN (Rec: 12/23/23 12:44 LRN [id number]) Out-Patient Physical Therapy Visit Information Visit Information Visit Type Treatment Note Visit Start Time 11:31 Visit Stop Time 12:12 Visit Number 2 Evaluation Information Evaluation Date 12/16/23 Precautions Precautions Hypothyroid controlled by meds , interminttent dizziness like vertigo-2018. Partial hysterectomy 2017, burst appendix 1995. PT-OP-B Current Condition Start: 12/06/23 19:51 Freq: Status: Active Protocol: Document 12/16/23 11:26 LRN (Rec: 12/16/23 12:40 LRN [id number]) Current Condition History of Current Condition Onset Date May 2023 Current Complaints Mild rectocele and intermittent urinary leakage with cough/sneeze History of Current Condition Pt reports during her pelvic exam it was thought that her bowels were poking through the PF and wanted her to have PT so that it wouldn't get worse. She has started estradiol for the PF. Sometimes with sneeze or cough she has urinary leakage. Currently, she is being followed for bilateral gluteal tendonopathy and being treated at L4-L5 by accupuncturist and chiropractor (for neurological integration). Dr. Carol Hoang was not able to treat her for the tendonopathy and suggested accupuncture and senior quality analyst. Saw was given insole support for shoes by her chiropractor. She reports having urinary leakage sometimes with a cough or sneeze. 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 Too much sitting or walking flares her pain. Prior Treatments and Tests 2 pregnancies of over 40#, vaginal births with minmal tearing w/o stitches. Treatment Goals Patient/Caregiver Goals Pt goals: Reduce rectocele and learn what to do ( exercises) to prevent rectocele from worsening, but doesn't want to make her other medical conditions worse. Ageeable to HEP. 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 Surgical history of partial hysterectomy 2018, and burst appendix 1995. PT-OP-C Subjective Start: 12/06/23 19:51 Freq: Status: Active Protocol: Document 12/23/23 11:31 LRN (Rec: 12/23/23 12:44 LRN [id number]) OP-PT Subjective Patient Comments Patient Comments Did bladder diary. No leakge over the past week, and she had sneezed. Usually leakage is a surprising thing. PT-OP-I Pelvic Floor Start: 12/06/23 19:51 Freq: Status: Active Protocol: Document 12/16/23 11:26 LRN (Rec: 12/16/23 12:40 LRN [id number]) Pelvic Floor Assessment Urine Leakage Cause Cough,Sneeze Nocturia 1 Bowel Bowel Movement Frequency 1/day [place] Stool Chart Type 1-7 4 Pelvic Clock Pelvic Clock Other 6 O'Clock bulging of tissue. Prolapse Cystocele Grade 2 Rectocele Grade 3 Prolapse Comments Rectocele is at vaginal opening. Perineal Descent Resting Absent Bearing Present Contraction Ability Manual Muscle Testing Left 2 Manual Muscle Testing Right 2 Manual Muscle Testing Anterior 3 Manual Muscle Testing Posterior 2 Muscle Endurance (Seconds) 3 Number of Quick Contractions In 10 8 Seconds PT-OP-J Posture/Palpation/Skin Start: 12/06/23 19:51 Freq: Status: Active Protocol: Document 12/16/23 11:26 LRN (Rec: 12/16/23 12:40 LRN [id number]) Posture Evaluation Position Standing Head/C-Spine Posture Forward Head T-Spine Posture Flattened Shoulder Posture (L) Elevated Pelvis Posture Anteriorly Tilted,(L) PSIS Posterior Comments Posture Comments Valgus of big toes, straightened upper T/S, mild C-curve of T11-L4 with T12-L1 apex on L. PT-OP-K Range of Motion Start: 12/06/23 19:51 Freq: Status: Active Protocol: Document 12/23/23 11:31 LRN (Rec: 12/23/23 12:44 LRN [id number]) Hip Goniometric Range of Motion Hip Right Passive Internal Rotation 48 External Rotation 55 Left Passive Internal Rotation 45 External Rotation 55 PT-OP-M Strength Start: 12/06/23 19:51 Freq: Status: Active Protocol: Document 12/16/23 11:26 LRN (Rec: 12/16/23 12:40 LRN [id number]) Trunk Strength Trunk Manual Muscle Testing Core Stabilization R hip flex MMT 4/5, otherwise pt not able to maintain a stable core with movements of the LE's. Hip Strength Hip Manual Muscle Testing Right Extension (S1) 3+ Fair+ Abduction 3+ Fair+ Adduction 3 Fair Left Extension (S1) 3 Fair Abduction 4 Good Internal Rotation 3+ Fair+ Comments Strength is 5/5 except as indicated above. PT-OP-Q Treatments Start: 12/06/23 19:51 Freq: Status: Active Protocol: Document 12/23/23 11:31 LRN (Rec: 12/23/23 12:44 LRN [id number]) Therapeutic Exercises Supine Exercises Piriformis Side bilateral Reps/Minutes 1' Comments Held due to c/o discomfort and fear of causing flare up. Fig 4 stretch Side bilateral Reps/Minutes 4' Comments Very gentle stretching, due to tendonopathy dx. Lateral Hip stretch Side bilateral Reps/Minutes 4' Long hold Kegels Reps/Minutes 2' Comments Cued to perform in isolation of substitute ms Quick Flicks Kegels Reps/Minutes 4' Comments Cued to perform in isolation of substitute ms Deep breathing Reps/Minutes 6' Comments Cuing to open lower ribs and hold chest still. Self-Care/Home Management Treatment Education Other Education Dicussed & educated in bladder irritants at length. Reviewed bladder diary and discussed at length her urination times, times between voids and types of fluids drinking. Discussed changing coffee to decaf if not wanting to void as frequent in day and cut back on fluids as approaching bedtime and not drinking as much fluids at night. Educated pt in urge deference technique. Activities Self-Care/Home Management Activities Issued handouts: [employer] Bladder Diet, Urge deference technique (bladder retraining). PT-OP-T Assessment and Plan Start: 12/06/23 19:51 Freq: Status: Active Protocol: Document 12/23/23 11:31 LRN (Rec: 12/23/23 12:44 LRN [id number]) Physical Therapy Assessment Goals Three Impairment Poor core pressure management. Short Term Goal (STG) Pt educated in core pressure management and able to identify management with ADLs. STG Duration 2 wks-12/31/23 Automation Controls Engineer Goal (LTG) Pt able to demonstrate good core pressure management with transfers. LTG Duration 15 wks-03/27/24 Two Impairment Decreased PF endurance Short Term Goal (STG) Pt will improve PF endurance to 5 sec hold prior to fatigue . 12/23/23: Pt educated in Kegel without use of substitute muscles. STG Duration 8 wks-02/14/24 Fci Goal (LTG) Pt will be able to improve PF endurance to 10 second hold prior to fatigue. LTG Duration 15 wks-03/27/24 One Impairment Lacks appropriate self care HEP Short Term Goal (STG) Pt will be educated in posterior PF strengthening and endurance ex's to decrease rectocele bulge at vaginal entry. STG Duration 2 wks-12/31/23 Automation Controls Engineer Goal (LTG) Pt will be independent in a HEP of PF/hip ROM & strengthening exercises for stabilization of pelvis w/o increasing ny hip tendonopathy pain. LTG Duration 15 wks-03/27/24 Assessment Summary Assessment Pt is a 53 yo female with ( mass vs rectocele?) at 6 of PF clock, at vaginal opening with weakness of long hold endurance ms and fairly good strength of superficial ms except at 6 O'Clock and intermittent stress urinary incontinence with a cough or sneeze, current diagnosed w/ comorbidity of ny gluteal tendinosus and receiving accupuncture & pet care associate. Today, pt reporting no urinary leakage this past week and thinks the aggrevator ex has helped. Pt needs to work on increaing depth of deep breathing but may be limited in abdominal region due to scarring from uterus and appendix removal. Hip mobility for IR is good, ER is mildly limited, butdue to gluteal tendinopathy, will not focus on improving hip mobility. Posterior PF strengthening needed. Physical Therapy Plan Frequency and Duration Frequency of Treatment 1x/Week Duration of treatment (weeks) 15 Plan of Care Start Date 12/16/23 Plan of Care End Date 03/27/24 Next Visit Focus/Plan Next Note Type Treatment Note Next Visit Plan Next: Recheck PF and soft tissue at vaginal entry for change in presentation. Check for abdominal fascial restrictions and need for Sacral balancing. Manual stretch to OI if needed. Education: Core pressure management with reduction of intra-abdominal pressure, proper deep breathing, and proper breathing with transfers and body mechanics. Ther Ex: PF/core/hip strengthening (caution to not flare glulteal tendinoopathy), improve trunk extension mobility. POC: Pt education, Manual therapy. ?Biofeedback with vaginal sensor. Therapeutic Exercises, Therapeutic Activities, Neuromuscular Reeducation.
--- NOTE | 2023-12-30 12:33 | PT.OTN ---
Current Diagnoses Pain in unspecified hip (12/30/23) Muscle weakness (generalized) (12/30/23) Other specified disorders of muscle (12/30/23) Stress incontinence (female) (male) (12/30/23) Physical Therapy Treatment Note PT-OP-A Visit Information Start: 12/06/23 19:51 Freq: Status: Active Protocol: Document 12/30/23 11:21 LRN (Rec: 12/30/23 12:27 LRN [id number]) Out-Patient Physical Therapy Visit Information Visit Information Visit Type Treatment Note Visit Start Time 11:21 Visit Stop Time 12:06 Visit Number 3 Evaluation Information Evaluation Date 12/16/23 Precautions Precautions Hypothyroid controlled by meds , interminttent dizziness like vertigo-2018. Partial hysterectomy 2017, burst appendix 1996. PT-OP-B Current Condition Start: 12/06/23 19:51 Freq: Status: Active Protocol: Document 12/16/23 11:26 LRN (Rec: 12/16/23 12:40 LRN [id number]) Current Condition History of Current Condition Onset Date May 2023 Current Complaints Mild rectocele and intermittent urinary leakage with cough/sneeze History of Current Condition Pt reports during her pelvic exam it was thought that her bowels were poking through the PF and wanted her to have PT so that it wouldn't get worse. She has started estradiol for the PF. Sometimes with sneeze or cough she has urinary leakage. Currently, she is being followed for bilateral gluteal tendonopathy and being treated at L4-L5 by accupuncturist and chiropractor (for neurological integration). Dr. Carol Hoang was not able to treat her for the tendonopathy and suggested accupuncture and header boss. Saw was given insole support for shoes by her chiropractor. She reports having urinary leakage sometimes with a cough or sneeze. 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 Too much sitting or walking flares her pain. Prior Treatments and Tests 2 pregnancies of over 40#, vaginal births with minmal tearing w/o stitches. Treatment Goals Patient/Caregiver Goals Pt goals: Reduce rectocele and learn what to do ( exercises) to prevent rectocele from worsening, but doesn't want to make her other medical conditions worse. Ageeable to HEP. 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 Surgical history of partial hysterectomy 2017, and burst appendix 1995. PT-OP-C Subjective Start: 12/06/23 19:51 Freq: Status: Active Protocol: Document 12/30/23 11:21 LRN (Rec: 12/30/23 12:27 LRN [id number]) OP-PT Subjective Patient Comments Patient Comments Can walk 40'/day and went swimming (prior: 4-10 milles/ day, walking 2x/day). PT-OP-I Pelvic Floor Start: 12/06/23 19:51 Freq: Status: Active Protocol: Document 12/16/23 11:26 LRN (Rec: 12/16/23 12:40 LRN [id number]) Pelvic Floor Assessment Urine Leakage Cause Cough,Sneeze Nocturia 1 Bowel Bowel Movement Frequency 1/day [place] Stool Chart Type 1-7 4 Pelvic Clock Pelvic Clock Other 6 O'Clock bulging of tissue. Prolapse Cystocele Grade 2 Rectocele Grade 3 Prolapse Comments Rectocele is at vaginal opening. Perineal Descent Resting Absent Bearing Present Contraction Ability Manual Muscle Testing Left 2 Manual Muscle Testing Right 2 Manual Muscle Testing Anterior 3 Manual Muscle Testing Posterior 2 Muscle Endurance (Seconds) 3 Number of Quick Contractions In 10 8 Seconds PT-OP-J Posture/Palpation/Skin Start: 12/06/23 19:51 Freq: Status: Active Protocol: Document 12/16/23 11:26 LRN (Rec: 12/16/23 12:40 LRN [id number]) Posture Evaluation Position Standing Head/C-Spine Posture Forward Head T-Spine Posture Flattened Shoulder Posture (L) Elevated Pelvis Posture Anteriorly Tilted,(L) PSIS Posterior Comments Posture Comments Valgus of big toes, straightened upper T/S, mild C-curve of T11-L4 with T12-L1 apex on L. PT-OP-K Range of Motion Start: 12/06/23 19:51 Freq: Status: Active Protocol: Document 12/23/23 11:31 LRN (Rec: 12/23/23 12:44 LRN [id number]) Hip Goniometric Range of Motion Hip Right Passive Internal Rotation 48 External Rotation 55 Left Passive Internal Rotation 45 External Rotation 55 PT-OP-M Strength Start: 12/06/23 19:51 Freq: Status: Active Protocol: Document 12/16/23 11:26 LRN (Rec: 12/16/23 12:40 LRN [id number]) Trunk Strength Trunk Manual Muscle Testing Core Stabilization R hip flex MMT 4/5, otherwise pt not able to maintain a stable core with movements of the LE's. Hip Strength Hip Manual Muscle Testing Right Extension (S1) 3+ Fair+ Abduction 3+ Fair+ Adduction 3 Fair Left Extension (S1) 3 Fair Abduction 4 Good Internal Rotation 3+ Fair+ Comments Strength is 5/5 except as indicated above. PT-OP-Q Treatments Start: 12/06/23 19:51 Freq: Status: Active Protocol: Document 12/30/23 11:21 LRN (Rec: 12/30/23 12:27 LRN [id number]) Therapeutic Exercises Supine Exercises Fig 4 stretch Side bilateral Equipment Used Pillow under thigh for support . Reps/Minutes 4' Comments Very gentle stretching, due to tendonopathy dx. Lateral Hip stretch Side bilateral Reps/Minutes 4' Long hold Kegels Reps/Minutes 5' Quick Flicks Kegels Reps/Minutes 3' Therapeutic Activity Therapeutic Activity Transfers w/core pressure mgmt Name Transfer sup>sit>stand w/core pressure mgmt Reps/Minutes 10' Comments Pt education of core pressure mgmt prior to mobilization. Pt needed phys & v cuing for transfer and constant v cuing for breathing through exercise . Manual Therapy Treatment Consent Patient gave verbal consent for manual Yes treatment Soft Tissue Mobilization Sacrum Body Location Sacrum, Ileums Mobilization Type Sustained Pressure Intensity/Depth superficial>moderate Body Position Prone Comments Sacral Shear to R Sacral Sulcus L inferior glide R Ischial Tub PA 6 pt balancing PT-OP-T Assessment and Plan Start: 12/06/23 19:51 Freq: Status: Active Protocol: Document 12/30/23 11:21 LRN (Rec: 12/30/23 12:27 LRN [id number]) Physical Therapy Assessment Goals Three Impairment Poor core pressure management. Short Term Goal (STG) Pt educated in core pressure management and able to identify management with ADLs. 12/30/23: Core pressure management with reduction of intra-abdominal pressure STG Duration 2 wks-12/31/23 progressed Shelter Goal (LTG) Pt able to demonstrate good core pressure management with transfers. LTG Duration 15 wks-03/27/24 Two Impairment Decreased PF endurance Short Term Goal (STG) Pt will improve PF endurance to 5 sec hold prior to fatigue . 12/23/23: Pt educated in Kegel without use of substitute muscles. STG Duration 8 wks-02/14/24 Integration Software Engineer Goal (LTG) Pt will be able to improve PF endurance to 10 second hold prior to fatigue. LTG Duration 15 wks-03/27/24 One Impairment Lacks appropriate self care HEP Short Term Goal (STG) Pt will be educated in posterior PF strengthening and endurance ex's to decrease rectocele bulge at vaginal entry. STG Duration 2 wks-12/31/23 Integration Software Engineer Goal (LTG) Pt will be independent in a HEP of PF/hip ROM & strengthening exercises for stabilization of pelvis w/o increasing ny hip tendonopathy pain. LTG Duration 15 wks-03/27/24 Assessment Summary Assessment Pt is a 53 yo female with ( mass vs rectocele?) at 6 of PF clock, at vaginal opening with weakness of long hold endurance ms and fairly good strength of superficial ms except at 6 O'Clock and intermittent stress urinary incontinence with a cough or sneeze, current diagnosed w/ comorbidity of ny gluteal tendinosus and receiving accupuncture & medical care administrator. Today, per PF digital assessment, pt has tissue mass at vaginal entry that needs further assessment. Her PF strength is good but weaker on R side (6-11 of PF clock), strengthening needed. Recommended to pt to have entry of Vagina checked (at 6 of PF clock). Pt may need OBGYN consult. Sacrum is stiff L inferior glide and with R sacral shear, and posterior R CAMMY/Ischial Tub, not fully mobilized. Pt reported feeling good after Sacral STM. Gentle STM given due to pt's hx of hip pain and tendonitis reports. Physical Therapy Plan Frequency and Duration Frequency of Treatment 1x/Week Duration of treatment (weeks) 15 Plan of Care Start Date 12/16/23 Plan of Care End Date 03/27/24 Next Visit Focus/Plan Next Note Type Treatment Note Next Visit Plan Next: Assess for adherence to core pressure mgmt and educate w/pt demonstrating breathwork with ADLs (STG 3). Assess response to Sacral balancing. Manual stretch to OI if needed. Check for abdominal fascial restrictions . ?Vemg for PF strengthening Education: Review: proper deep breathing, and proper breathing with transfers and body mechanics. Ther Ex: PF (rag production worker)/core/hip strengthening (caution to not flare glulteal tendinoopathy) , improve trunk extension mobility. Manual: STM LB and try lumbar traction for ny hip pain when present. POC: Pt education, Manual therapy. ?Biofeedback with vaginal sensor. Therapeutic Exercises, Therapeutic Activities, Neuromuscular Reeducation.
--- NOTE | 2024-01-27 12:37 | PT.OTN ---
Current Diagnoses Pain in unspecified hip (01/27/24) Muscle weakness (generalized) (01/27/24) Other specified disorders of muscle (01/27/24) Stress incontinence (female) (male) (01/27/24) Physical Therapy Treatment Note PT-OP-A Visit Information Start: 12/06/23 19:51 Freq: Status: Active Protocol: Document 01/27/24 11:24 LRN (Rec: 01/27/24 12:36 LRN [id number]) Out-Patient Physical Therapy Visit Information Visit Information Visit Type Treatment Note Visit Start Time 11:24 Visit Stop Time 12:05 Visit Number 4 Evaluation Information Evaluation Date 12/16/23 Precautions Precautions Hypothyroid controlled by meds , interminttent dizziness like vertigo-2018. Partial hysterectomy 2017, burst appendix 1995. PT-OP-B Current Condition Start: 12/06/23 19:51 Freq: Status: Active Protocol: Document 12/16/23 11:26 LRN (Rec: 12/16/23 12:40 LRN [id number]) Current Condition History of Current Condition Onset Date May 2023 Current Complaints Mild rectocele and intermittent urinary leakage with cough/sneeze History of Current Condition Pt reports during her pelvic exam it was thought that her bowels were poking through the PF and wanted her to have PT so that it wouldn't get worse. She has started estradiol for the PF. Sometimes with sneeze or cough she has urinary leakage. Currently, she is being followed for bilateral gluteal tendonopathy and being treated at L4-L5 by accupuncturist and chiropractor (for neurological integration). Dr. 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 Saw was given insole support for shoes by her chiropractor. She reports having urinary leakage sometimes with a cough or sneeze. 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 Too much sitting or walking flares her pain. Prior Treatments and Tests 2 pregnancies of over 40#, vaginal births with minmal tearing w/o stitches. Treatment Goals Patient/Caregiver Goals Pt goals: Reduce rectocele and learn what to do ( exercises) to prevent rectocele from worsening, but doesn't want to make her other medical conditions worse. Ageeable to HEP. 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 Surgical history of partial hysterectomy 2018, and burst appendix 1995. PT-OP-C Subjective Start: 12/06/23 19:51 Freq: Status: Active Protocol: Document 01/27/24 11:24 LRN (Rec: 01/27/24 12:36 LRN [id number]) OP-PT Subjective Patient Comments Patient Comments States she feels good today. Doing kegels. Pain after last session in hip then chalino hips and LB. Walking daily and stretches gently. PT-OP-I Pelvic Floor Start: 12/06/23 19:51 Freq: Status: Active Protocol: Document 12/16/23 11:26 LRN (Rec: 12/16/23 12:40 LRN [id number]) Pelvic Floor Assessment Urine Leakage Cause Cough,Sneeze Nocturia 1 Bowel Bowel Movement Frequency 1/day [place] Stool Chart Type 1-7 4 Pelvic Clock Pelvic Clock Other 6 O'Clock bulging of tissue. Prolapse Cystocele Grade 2 Rectocele Grade 3 Prolapse Comments Rectocele is at vaginal opening. Perineal Descent Resting Absent Bearing Present Contraction Ability Manual Muscle Testing Left 2 Manual Muscle Testing Right 2 Manual Muscle Testing Anterior 3 Manual Muscle Testing Posterior 2 Muscle Endurance (Seconds) 3 Number of Quick Contractions In 10 8 Seconds PT-OP-J Posture/Palpation/Skin Start: 12/06/23 19:51 Freq: Status: Active Protocol: Document 12/16/23 11:26 LRN (Rec: 12/16/23 12:40 LRN [id number]) Posture Evaluation Position Standing Head/C-Spine Posture Forward Head T-Spine Posture Flattened Shoulder Posture (L) Elevated Pelvis Posture Anteriorly Tilted,(L) PSIS Posterior Comments Posture Comments Valgus of big toes, straightened upper T/S, mild C-curve of T11-L4 with T12-L1 apex on L. PT-OP-K Range of Motion Start: 12/06/23 19:51 Freq: Status: Active Protocol: Document 12/23/23 11:31 LRN (Rec: 12/23/23 12:44 LRN [id number]) Hip Goniometric Range of Motion Hip Right Passive Internal Rotation 48 External Rotation 55 Left Passive Internal Rotation 45 External Rotation 55 PT-OP-M Strength Start: 12/06/23 19:51 Freq: Status: Active Protocol: Document 12/16/23 11:26 LRN (Rec: 12/16/23 12:40 LRN [id number]) Trunk Strength Trunk Manual Muscle Testing Core Stabilization R hip flex MMT 4/5, otherwise pt not able to maintain a stable core with movements of the LE's. Hip Strength Hip Manual Muscle Testing Right Extension (S1) 3+ Fair+ Abduction 3+ Fair+ Adduction 3 Fair Left Extension (S1) 3 Fair Abduction 4 Good Internal Rotation 3+ Fair+ Comments Strength is 5/5 except as indicated above. PT-OP-Q Treatments Start: 12/06/23 19:51 Freq: Status: Active Protocol: Document 01/27/24 11:24 LRN (Rec: 01/27/24 12:36 LRN [id number]) Therapeutic Exercises Supine Exercises Hip ER stretch Supine Exercise Name 90/90 positioning hip ER stretch Side bilateral Reps/Minutes 3' Deep breathing Reps/Minutes 10x Comments Cued to relax upper body. Manual Therapy Treatment Consent Patient gave verbal consent for manual Yes treatment Soft Tissue Mobilization Abdomen Body Location Chalino lower abdomen at horiz scar Mobilization Type Sustained Pressure Intensity/Depth Deep Body Position Sup w/bolster Comments Restricted on R side to start, ended with almost equal mobility. Obturator Internus Body Location Bilateral OI Mobilization Type Sustained Pressure Intensity/Depth Deep Body Position Sup w/bolster & 90/90 Comments L side more restricted at end. Self-Care/Home Management Treatment Education Other Education Reviewed proper breathwork with sit up like transfer sit< >stand w/proper breathwork. Activities Self-Care/Home Management Activities I/S pt in self scar mob for primarily lateral mobility. PT-OP-T Assessment and Plan Start: 12/06/23 19:51 Freq: Status: Active Protocol: Document 01/27/24 11:24 LRN (Rec: 01/27/24 12:36 LRN [id number]) Physical Therapy Assessment Goals Three Impairment Poor core pressure management. Short Term Goal (STG) Pt educated in core pressure management and able to identify management with ADLs. 12/30/23: Core pressure management with reduction of intra-abdominal pressure STG Duration 2 wks-12/31/23 progressed Group Home Goal (LTG) Pt able to demonstrate good core pressure management with transfers. 01/27/24: Pt able to demonstrate good core pressure mgmt w/transfers after review . LTG Duration 15 wks-03/27/24 progressed 01/27/24 Two Impairment Decreased PF endurance Short Term Goal (STG) Pt will improve PF endurance to 5 sec hold prior to fatigue . 12/23/23: Pt educated in Kegel without use of substitute muscles. 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 LTG Duration 15 wks-03/27/24 One Impairment Lacks appropriate self care HEP Short Term Goal (STG) Pt will be educated in posterior PF strengthening and endurance ex's to decrease rectocele bulge at vaginal entry. STG Duration 2 wks-12/31/23 Pipe Assembly Worker Goal (LTG) Pt will be independent in a HEP of PF/hip ROM & strengthening exercises for stabilization of pelvis w/o increasing chalino hip tendonopathy pain. LTG Duration 15 wks-03/27/24 Assessment Summary Assessment Pt is a 53 yo female with ( mass vs rectocele?) at 6 of PF clock, at vaginal opening with weakness of long hold endurance ms and fairly good strength of superficial ms ( except at 6 O'Clock) current diagnosed w/comorbidity of chalino gluteal tendinosus and receiving accupuncture & regular senior care provider. Today, pt reports increased chalino hip discomfort after last session due to stretches and sitting in car after appt. Pt reports she tends to forget exhale with transfers (not doing log roll due to hip pain with sidelie). Doing PPT in supine feels good. Deep breathing mechanics is good. She is no longer having intermittent stress urinary incontinence with a cough or sneeze. Physical Therapy Plan Frequency and Duration Frequency of Treatment 1x/Week Duration of treatment (weeks) 15 Plan of Care Start Date 12/16/23 Plan of Care End Date 03/27/24 Next Visit Focus/Plan Next Note Type Treatment Note Next Visit Plan Next: Further assess for adherence to core pressure mgmt and Educate w/pt demonstrating breathwork with transfers/ADLs (STG 3). Check ER mobility before manual stretch to OI. Check for superior/inferior/diagonal abdominal fascial restrictions . 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 Manual: STM LB and try lumbar traction for chalino hip pain when present. POC: Pt education, Manual therapy. ?Biofeedback with vaginal sensor. Therapeutic Exercises, Therapeutic Activities, Neuromuscular Reeducation.1
--- NOTE | 2024-03-13 16:02 | PT.OTN ---
Current Diagnoses Pain in unspecified hip (03/13/24) Muscle weakness (generalized) (03/13/24) Other specified disorders of muscle (03/13/24) Stress incontinence (female) (male) (03/13/24) Physical Therapy Treatment Note PT-OP-A Visit Information Start: 12/06/23 19:51 Freq: Status: Active Protocol: Document 03/13/24 13:47 LRN (Rec: 03/13/24 14:34 LRN [id number]) Out-Patient Physical Therapy Visit Information Visit Information Visit Type Treatment Note Visit Start Time 13:47 Visit Stop Time 14:26 Visit Number 5 Evaluation Information Evaluation Date 12/16/23 Precautions Precautions Hypothyroid controlled by meds , interminttent dizziness like vertigo-2018. Partial hysterectomy 2017, burst appendix 1995. PT-OP-B Current Condition Start: 12/06/23 19:51 Freq: Status: Active Protocol: Document 12/16/23 11:26 LRN (Rec: 12/16/23 12:40 LRN [id number]) Current Condition History of Current Condition Onset Date May 2023 Current Complaints Mild rectocele and intermittent urinary leakage with cough/sneeze History of Current Condition Pt reports during her pelvic exam it was thought that her bowels were poking through the PF and wanted her to have PT so that it wouldn't get worse. She has started estradiol for the PF. Sometimes with sneeze or cough she has urinary leakage. Currently, she is being followed for bilateral gluteal tendonopathy and being treated at L4-L5 by accupuncturist and chiropractor (for neurological integration). Dr. 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 Saw was given insole support for shoes by her chiropractor. She reports having urinary leakage sometimes with a cough or sneeze. 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 Too much sitting or walking flares her pain. Prior Treatments and Tests 2 pregnancies of over 40#, vaginal births with minmal tearing w/o stitches. Treatment Goals Patient/Caregiver Goals Pt goals: Reduce rectocele and learn what to do ( exercises) to prevent rectocele from worsening, but doesn't want to make her other medical conditions worse. Ageeable to HEP. 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 Surgical history of partial hysterectomy 2017, and burst appendix 1995. PT-OP-C Subjective Start: 12/06/23 19:51 Freq: Status: Active Protocol: Document 03/13/24 13:47 LRN (Rec: 03/13/24 14:34 LRN [id number]) OP-PT Subjective Patient Comments Patient Comments Walking daily, and increasing minutes. States her back is better and she has been doing well. Has had only 1 flare up of soreness on gluteals from going up/down ladder. Hasn't had pain in greater trochanter for a long time. Having buttock pain where the hamstrings when in flare up. Not doing fig 4 stretch, doing something different. Walking daily. Last weekend did a 60 minute hike with low incline and had no pain in back. Doing Kegels daily. Sleeping is fine on back with pillow under knees. PT-OP-I Pelvic Floor Start: 12/06/23 19:51 Freq: Status: Active Protocol: Document 12/16/23 11:26 LRN (Rec: 12/16/23 12:40 LRN [id number]) Pelvic Floor Assessment Urine Leakage Cause Cough,Sneeze Nocturia 1 Bowel Bowel Movement Frequency 1/day [place] Stool Chart Type 1-7 4 Pelvic Clock Pelvic Clock Other 6 O'Clock bulging of tissue. Prolapse Cystocele Grade 2 Rectocele Grade 3 Prolapse Comments Rectocele is at vaginal opening. Perineal Descent Resting Absent Bearing Present Contraction Ability Manual Muscle Testing Left 2 Manual Muscle Testing Right 2 Manual Muscle Testing Anterior 3 Manual Muscle Testing Posterior 2 Muscle Endurance (Seconds) 3 Number of Quick Contractions In 10 8 Seconds PT-OP-J Posture/Palpation/Skin Start: 12/06/23 19:51 Freq: Status: Active Protocol: Document 12/16/23 11:26 LRN (Rec: 12/16/23 12:40 LRN [id number]) Posture Evaluation Position Standing Head/C-Spine Posture Forward Head T-Spine Posture Flattened Shoulder Posture (L) Elevated Pelvis Posture Anteriorly Tilted,(L) PSIS Posterior Comments Posture Comments Valgus of big toes, straightened upper T/S, mild C-curve of T11-L4 with T12-L1 apex on L. PT-OP-K Range of Motion Start: 12/06/23 19:51 Freq: Status: Active Protocol: Document 12/23/23 11:31 LRN (Rec: 12/23/23 12:44 LRN [id number]) Hip Goniometric Range of Motion Hip Right Passive Internal Rotation 48 External Rotation 55 Left Passive Internal Rotation 45 External Rotation 55 PT-OP-M Strength Start: 12/06/23 19:51 Freq: Status: Active Protocol: Document 12/16/23 11:26 LRN (Rec: 12/16/23 12:40 LRN [id number]) Trunk Strength Trunk Manual Muscle Testing Core Stabilization R hip flex MMT 4/5, otherwise pt not able to maintain a stable core with movements of the LE's. Hip Strength Hip Manual Muscle Testing Right Extension (S1) 3+ Fair+ Abduction 3+ Fair+ Adduction 3 Fair Left Extension (S1) 3 Fair Abduction 4 Good Internal Rotation 3+ Fair+ Comments Strength is 5/5 except as indicated above. PT-OP-Q Treatments Start: 12/06/23 19:51 Freq: Status: Active Protocol: Document 03/13/24 13:47 LRN (Rec: 03/13/24 14:34 LRN [id number]) Therapeutic Exercises Supine Exercises Fig 4 stretch Supine Exercise Name Fig 4 with foot next to knee Side bilateral Reps/Minutes 60 SH x 1 Comments Extra time to determine best position for stretch Lateral Hip stretch Side bilateral Reps/Minutes 60 SH x 1 each Comments Extra time to determine max michael movement for stretch. Long hold Kegels Supine Exercise Name ........... Quick Flicks Kegels Supine Exercise Name ........... Deep breathing Reps/Minutes 10x Comments Cued to relax upper body. Sitting Exercises SL hamstring stretch Side bilateral Reps/Minutes 60 SH x 1 each. Therapeutic Activity Therapeutic Activity Transfers w/core pressure mgmt Name Transfer sup>sit>stand w/core pressure mgmt Reps/Minutes 9' Comments Reviewed core pressure mgmt prior to mobilization. Pt needed phys & v cuing for transfer and constant v cuing for breathing through exercise . Self-Care/Home Management Treatment Activities Self-Care/Home Management Activities Issued & reviewed HEP: Transfers with breath/Kegel. PT-OP-T Assessment and Plan Start: 12/06/23 19:51 Freq: Status: Active Protocol: Document 03/13/24 13:47 LRN (Rec: 03/13/24 14:34 LRN [id number]) Physical Therapy Assessment Goals Three Impairment Poor core pressure management. Short Term Goal (STG) Pt educated in core pressure management and able to identify management with ADLs. 12/30/23: Core pressure management with reduction of intra-abdominal pressure. : Educated pt in core pressure mgmt with transfers. STG Duration 2 wks-12/31/23 progressed 10/01 (need w/ADLs) Custodial Goal (LTG) Pt able to demonstrate good core pressure management with transfers. 01/27/24: Pt able to demonstrate good core pressure mgmt w/transfers after review . 03/13/24: Pt able to demonstrate core pressure mgmt with transfers after review. LTG Duration 15 wks-03/27/24 progressed 03/13/24 Two Impairment Decreased PF endurance Short Term Goal (STG) Pt will improve PF endurance to 5 sec hold prior to fatigue . 12/23/23: Pt educated in Kegel without use of substitute muscles. 03/13/24: Pt able to hold a PF contraction 5 secs prior to fatigue, then fatigue again at 8 secs. 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 03/13/24: Pt fatigues at 5 secs & 8 secs. LTG Duration 15 wks-03/27/24 One Impairment Lacks appropriate self care HEP Short Term Goal (STG) Pt will be educated in posterior PF strengthening and endurance ex's to decrease rectocele bulge at vaginal entry. 03/13/24: I/S pt to start PF contractions with TB hip AB/ER (sup) with hips on pillow. STG Duration 2 wks-12/31/23 Ammonia Print Operator Goal (LTG) Pt will be independent in a HEP of PF/hip ROM & strengthening exercises for stabilization of pelvis w/o increasing ny hip tendonopathy pain. LTG Duration 15 wks-03/27/24 Assessment Summary Assessment Pt is a 53 yo female with ( mass vs rectocele?) at 6 of PF clock, at vaginal opening with weakness of long hold endurance ms and fairly good strength of superficial ms ( except at 6 O'Clock) current diagnosed w/comorbidity of ny gluteal tendinosus and receiving accupuncture & multi care technician. Today, no polyp noted in PF. Rectocele, grade 3 present, mild drawing inward with Kegel. There is redness at Pelvic Clock 6, possible tearing? Lumbar stability improved since pt doing PF ex's. Per palpation PF endurance prior to fatigue is 5 and 8 sec holds. Proper log roll transfer is limted by pt's fear of return of greater trochanter busitis with pressure at the hip. Physical Therapy Plan Frequency and Duration Frequency of Treatment 1x/Week Duration of treatment (weeks) 15 Plan of Care Start Date 12/16/23 Plan of Care End Date 03/27/24 Next Visit Focus/Plan Next Note Type Progress Note Next Visit Plan Next: PN for new POC, or DC to HEP. Assess for adherence to core pressure mgmt. Check ER mobility before manual stretch to OI. (STG 3) Educate w/pt demonstrating breathwork with ADLs. Check for superior/inferior/ diagonal abdominal fascial restrictions. 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 Manual: STM LB and try lumbar traction for ny hip pain when present. POC: Pt education, Manual therapy. ?Biofeedback with vaginal sensor. Therapeutic Exercises, Therapeutic Activities, Neuromuscular Reeducation.1
--- NOTE | 2024-03-20 14:10 | PT.OTN ---
Current Diagnoses Pain in unspecified hip (03/20/24) Muscle weakness (generalized) (03/20/24) Other specified disorders of muscle (03/20/24) Stress incontinence (female) (male) (03/20/24) Physical Therapy Treatment Note PT-OP-A Visit Information Start: 12/06/23 19:51 Freq: Status: Active Protocol: Document 03/20/24 11:42 LRN (Rec: 03/20/24 14:10 LRN [id number]) Out-Patient Physical Therapy Visit Information Visit Information Visit Type Treatment Note Visit Start Time 11:42 Visit Stop Time 12:28 Visit Number 6 Evaluation Information Evaluation Date 12/16/23 Precautions Precautions Hypothyroid controlled by meds , interminttent dizziness like vertigo-2018. Partial hysterectomy 2017, burst appendix 1995. PT-OP-B Current Condition Start: 12/06/23 19:51 Freq: Status: Active Protocol: Document 12/16/23 11:26 LRN (Rec: 12/16/23 12:40 LRN [id number]) Current Condition History of Current Condition Onset Date May 2023 Current Complaints Mild rectocele and intermittent urinary leakage with cough/sneeze History of Current Condition Pt reports during her pelvic exam it was thought that her bowels were poking through the PF and wanted her to have PT so that it wouldn't get worse. She has started estradiol for the PF. Sometimes with sneeze or cough she has urinary leakage. Currently, she is being followed for bilateral gluteal tendonopathy and being treated at L4-L5 by accupuncturist and chiropractor (for neurological integration). Dr. Carol Hoang was not able to treat her for the tendonopathy and suggested accupuncture and on site coordinator. Saw was given insole support for shoes by her chiropractor. She reports having urinary leakage sometimes with a cough or sneeze. 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 Too much sitting or walking flares her pain. Prior Treatments and Tests 2 pregnancies of over 40#, vaginal births with minmal tearing w/o stitches. Treatment Goals Patient/Caregiver Goals Pt goals: Reduce rectocele and learn what to do ( exercises) to prevent rectocele from worsening, but doesn't want to make her other medical conditions worse. Ageeable to HEP. 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 Surgical history of partial hysterectomy 2017, and burst appendix 1995. PT-OP-C Subjective Start: 12/06/23 19:51 Freq: Status: Active Protocol: Document 03/20/24 11:42 LRN (Rec: 03/20/24 14:10 LRN [id number]) OP-PT Subjective Patient Comments Patient Comments Did a 45' hike on a gentle incline and did good, no back/ hip pain. Finds that if she doesn't walk daily then she gets stiff and sore. Hasn't had urinary leakage with sneeze or cough since doing Kegels. Made an appt with Dr. Lau for check of potential polyp. Patient Questionnaires Pelvic Pain and Urgency/Frequency Patient Symptom Scale Pelvic Pain Score 3 (initial was 4). PT-OP-I Pelvic Floor Start: 12/06/23 19:51 Freq: Status: Active Protocol: Document 12/16/23 11:26 LRN (Rec: 12/16/23 12:40 LRN [id number]) Pelvic Floor Assessment Urine Leakage Cause Cough,Sneeze Nocturia 1 Bowel Bowel Movement Frequency 1/day Dawes Stool Chart Type 1-7 4 Pelvic Clock Pelvic Clock Other 6 O'Clock bulging of tissue. Prolapse Cystocele Grade 2 Rectocele Grade 3 Prolapse Comments Rectocele is at vaginal opening. Perineal Descent Resting Absent Bearing Present Contraction Ability Manual Muscle Testing Left 2 Manual Muscle Testing Right 2 Manual Muscle Testing Anterior 3 Manual Muscle Testing Posterior 2 Muscle Endurance (Seconds) 3 Number of Quick Contractions In 10 8 Seconds PT-OP-J Posture/Palpation/Skin Start: 12/06/23 19:51 Freq: Status: Active Protocol: Document 12/16/23 11:26 LRN (Rec: 12/16/23 12:40 LRN [id number]) Posture Evaluation Position Standing Head/C-Spine Posture Forward Head T-Spine Posture Flattened Shoulder Posture (L) Elevated Pelvis Posture Anteriorly Tilted,(L) PSIS Posterior Comments Posture Comments Valgus of big toes, straightened upper T/S, mild C-curve of T11-L4 with T12-L1 apex on L. PT-OP-K Range of Motion Start: 12/06/23 19:51 Freq: Status: Active Protocol: Document 03/20/24 11:42 LRN (Rec: 03/20/24 14:10 LRN [id number]) Hip Goniometric Range of Motion Hip Right Passive Testing Position Supine Internal Rotation 40 External Rotation 55 Left Passive Testing Position Supine Internal Rotation 45 External Rotation 45 PT-OP-M Strength Start: 12/06/23 19:51 Freq: Status: Active Protocol: Document 12/16/23 11:26 LRN (Rec: 12/16/23 12:40 LRN [id number]) Trunk Strength Trunk Manual Muscle Testing Core Stabilization R hip flex MMT 4/5, otherwise pt not able to maintain a stable core with movements of the LE's. Hip Strength Hip Manual Muscle Testing Right Extension (S1) 3+ Fair+ Abduction 3+ Fair+ Adduction 3 Fair Left Extension (S1) 3 Fair Abduction 4 Good Internal Rotation 3+ Fair+ Comments Strength is 5/5 except as indicated above. PT-OP-Q Treatments Start: 12/06/23 19:51 Freq: Status: Active Protocol: Document 03/20/24 11:42 LRN (Rec: 03/20/24 14:10 LRN [id number]) Therapeutic Exercises Supine Exercises Piriformis Supine Exercise Name Hooklie > Knee IR rotate in towards other leg. Side bilateral Reps/Minutes 6' Extra time for proper execution of ex Comments Hip IR ROM taken. Cued gentle stretch w/o pain Fig 4 stretch Supine Exercise Name Manual assisted hip ER stretch . Side bilateral Reps/Minutes x 2-3 Comments ROM taken. Extra time to determine max michael stretch to not create hip pain. Lateral Hip stretch Side bilateral Reps/Minutes 60 SH x 1 each Comments Extra time to determine max michael movement for stretch. Long hold Kegels Supine Exercise Name Long Hold Kegels Reps/Minutes 10 SH Comments MMT/endurance taken Quick Flicks Kegels Supine Exercise Name Quick 1 sec hold Kegels Reps/Minutes 10x 2 with rest Comments MMT taken Standing Exercises Plie Reps/Minutes 3' Therapeutic Activity Therapeutic Activity Transfers w/core pressure mgmt Name Transfer sup>sit>stand w/core pressure mgmt Reps/Minutes 14' Comments Core pressure mgmt training. Pt needed phys & v cuing for transfer and constant v cuing for breathing through exercise . Self-Care/Home Management Treatment Activities Self-Care/Home Management Activities Issued & reviewed HEP: Standing Plie w/Kegel, with instructions that she could also do standing ball squeeze with Kegel. PT-OP-T Assessment and Plan Start: 12/06/23 19:51 Freq: Status: Active Protocol: Document 03/20/24 11:42 LRN (Rec: 03/20/24 14:10 LRN [id number]) Physical Therapy Assessment Goals Three Impairment Poor core pressure management. Short Term Goal (STG) Pt educated in core pressure management and able to identify management with ADLs. 12/30/23: Core pressure management with reduction of intra-abdominal pressure. : Educated pt in core pressure mgmt with transfers. 03/20/24: Pt able to identify how to use core pressure managment to reduce intra- abdominal pressure. STG Duration 2 wks-12/31/23 (03/20/24: MET GOAL) Lead Consultant Goal (LTG) Pt able to demonstrate good core pressure management with transfers. 01/27/24: Pt able to demonstrate good core pressure mgmt w/transfers after review . 03/13/24: Pt able to demonstrate core pressure mgmt with transfers after review. 03/20/24: Pt able to identify and demonstrate proper core pressure mgmt with transfers LTG Duration 15 wks-03/27/24 (03/20/24: MET GOAL) Two Impairment Decreased PF endurance Short Term Goal (STG) Pt will improve PF endurance to 5 sec hold prior to fatigue . 12/23/23: Pt educated in Kegel without use of substitute muscles. 03/13/24: Pt able to hold a PF contraction 5 secs prior to fatigue, then fatigue again at 8 secs. STG Duration 8 wks-02/14/24 (03/13/24: MET GOAL) Care Home Goal (LTG) Pt will be able to improve PF endurance to 10 second hold prior to fatigue. 03/13/24: Pt fatigues at 5 secs & 8 secs. 03/20/24: PF hold 10 secs with minor fatigue, but holding 10 secs. LTG Duration 15 wks-03/27/24 (03/20/24: MET GOAL) One Impairment Lacks appropriate self care HEP Short Term Goal (STG) Pt will be educated in posterior PF strengthening and endurance ex's to decrease rectocele bulge at vaginal entry. 03/13/24: I/S pt to start PF contractions with TB hip AB/ER (sup) with hips on pillow. 03/20/24: HEP: Standing plies, 10 SH. STG Duration 2 wks-12/31/23 (03/20/24: MET GOAL) Care Home Goal (LTG) Pt will be independent in a HEP of PF/hip ROM & strengthening exercises for stabilization of pelvis w/o increasing ny hip tendonopathy pain. 03/20/24: Pt able to transfer w/o increasing ny hip tendonopathy and has helped decreased her hip tendonopathy . 03/20/24: Reviewed verbally HEP hip stretches that the pt has been doing at her own pace ; therefore handout not issued as the particular positioning caused pain unless modified. Pt has handout for PF strengthening ex's. Issued HEP: Standing Plie w/Kegel, with instructions that she could also do standing ball squeeze with Kegel. 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 Pt demonstrates that she is adhering to proper core pressure mgmt. She has some asymmetry of hip mobility due to previous injury to hip ( tendonopathy) limiting pt hip stretch progression. She appears to have a rectocele (( vs mass?) that doesn't extend past her vaginal opening as assessed in standing. PF contractions provide a little lift of these tissues. Core pressure management is a good non-surgical method to prevent further prolpase of rectal tissues into vaginal canal. The pt demonstrated good self control with her HEP and appears to be improving consistently on her HEP as her hip/LBP is decreasing and she is no longer experiencng stress urinary incontinence; therefore the pt is being discharged today to her independent HEP. Physical Therapy Plan Discharge Physical Therapy Discharge Reasons Goals Met Discharge Comments The pt has done well with therapy. Assessment of tissues at PF clock 6 is recommended (possible polyp or internal rectocele). If further therapy is needed in the future we would be more than happy to work with this pleasant individual again. Thank you for your referral.
== END 2024-03-24 13:39 | disposition home or self-care (01) ==
LOC: PHYS 11:30
PROVIDERS: Family Provider Nurse Practitioner; PCP Nurse Practitioner; Referring Provider Nurse Practitioner; Visit Provider Nurse Practitioner
DX: M62.89 Other specified disorders of muscle (principal); N39.3 Stress incontinence (female) (male); M25.559 Pain in unspecified hip; M62.81 Muscle weakness (generalized)
CPT/HCPCS: 97110; 97140; 97162; 97530; 97535

== ENCOUNTER → 2024-07-21 11:27 | Outpatient (CLI) | payer OTHER, SELFPAY ==
--- NOTE | 2024-07-21 11:28 | DI.MG.S_ITS ---
BILATERAL DIGITAL SCREENING MAMMOGRAM 3D/2D WITH CAD: 07/21/2024 CLINICAL: Routine screening. Family history of breast cancer. Comparison is made to exams dated: 07/12/2023 mammogram, 07/20/2022 mammogram, and 07/07/2021 mammogram - [facility]. The breasts are heterogeneously dense, which may obscure small masses (category c / 51-75% glandular tissue). Current study was also evaluated with a Computer Aided Detection (CAD) system. No significant masses, calcifications, or other findings are seen in either breast. There has been no significant interval change. IMPRESSION: NEGATIVE There is no mammographic evidence of malignancy. A 1 year screening mammogram is recommended. Based on the Tyrer Cuzick model (a risk assessment model) the patient's lifetime risk is 15.1% and her 10 year risk is 4.7%. According to the ACR, ACS, and NCCN guidelines, an annual breast MRI exam along with mammogram is recommended if the patient's lifetime risk is 20% or greater. This exam was interpreted at Station ID: [id number]. NOTE: For mammograms, a report in lay terms will be sent to the patient. Approximately 15% of breast malignancies will not be visualized mammographically. In the management of a palpable breast mass, a negative mammogram must not discourage biopsy of a clinically suspicious lesion. Electronically Signed By: Yessi Howell M.D., Ph.D. lc/james:07/22/2024 07:44:44 copy to: Jayla Lau letter sent: Normal Exam ACR BI-RADS Category 1: Negative
== END ==
PROVIDERS: Family Provider Nurse Practitioner; PCP Family Medicine; Referring Provider Family Medicine; Visit Provider Family Medicine
DX: Z12.31 Encounter for screening mammogram for malignant neoplasm of breast (principal); Z80.3 Family history of malignant neoplasm of breast; R92.333 Mammographic heterogeneous density, bilateral breasts
CPT/HCPCS: 77063; 77067